=== PATIENT | female | born 1945 | race Caucasian/White ===

== ENCOUNTER 2016-11-26 16:38 | Observation (INO) | payer MEDICARE ==
[2016-11-26] MEDS ORDERED: TYLENOL 325 MG PO PRN (17:42)
[2016-11-26] MEDS ORDERED: PROVENTIL 2.5 MG/3 ML NEB IH PRN (18:00)
[2016-11-26] MEDS: Sodium Chloride 0.9% 1000 ML 1,000 ML IV SCH (18:12)
[2016-11-26 18:23] LABS: BASOPHIL % 0.3 % (0.0-0.4); Eosinophil % 2.2 % (0.00-5.0); Granulocytes % 70.1 % (36.0-66.0); Lymphocytes % 14.7 % (24.0-44.0); Mean Cell Volume 75.3 fl (78-100); Mean Platelet Volume 10.1 fl (6-9.5); Monocytes % 12.7 % (0.0-12.0); Platelet Count 304 K/mm3 (150-450); Red Blood Count 4.33 M/mm3 (4.1-5.4); Red Cell Distribution Width 16.7 % (11.5-14.0); White Blood Count 9.2 K/mm3 (4.0-10.5)
[2016-11-26 18:30] LABS: Mean Corpuscular Hemoglobin 22.8 pg (26-32)
[2016-11-26 18:56] LABS: ALBUMIN 3.3 g/dL (3.4-5.0); ALKALINE PHOSPHATASE 102 U/L (46-116); ANION GAP 13.8 MEQ/L (5-15); BLOOD UREA NITROGEN 12 mg/dL (9-20); CHLORIDE 104 mEq/L (98-107); Carbon Dioxide 25.2 mEq/L (21-32); Glucose 93 MG/DL (70-110); Potassium 3.8 mEq/L (3.5-5.1); SGOT/AST 42 U/L (15-37); SGPT/ALT 31 U/L (12-78); SODIUM 139 mEq/L (136-145); Total Protein 7.4 gm/dL (6.4-8.2)
[2016-11-26] MEDS ORDERED: BUSPAR 5 MG PO PRN (20:00)
[2016-11-26 20:47] LABS: Collection Type CLEAN CATCH
[2016-11-26 20:48] LABS: Bacteria MODERATE /HPF (NEGATIVE); Bilirubin NEGATIVE (NEGATIVE); Blood NEGATIVE Ery/ul (0-5); COMPLETE URINE MICROSCOPIC? YES; Epithelial Cells FEW /HPF (FEW); Glucose NEGATIVE (NEGATIVE); Leukocyte Esterase 1+ (NEGATIVE); Mucus MODERATE /HPF (NEGATIVE)
[2016-11-26] MEDS ORDERED: Singulair 10 MG PO SCH (21:00)
[2016-11-26] MEDS ORDERED: Coumadin 3 MG PO SCH (21:00)
[2016-11-26] MEDS: Cozaar 50 MG PO SCH (21:47)
[2016-11-26] MEDS: Coreg 3.125 MG PO SCH (21:48)
[2016-11-26] MEDS: SYNTHROID 100 MCG PO SCH (21:48)
[2016-11-26] MEDS: BUMEX 1 MG PO SCH (21:48)
[2016-11-26] MEDS: Klor Con 10 MEQ PO SCH ×2 (21:49→21:56)
[2016-11-27] MEDS: Sodium Chloride 0.9% 1000 ML 1,000 ML IV SCH (04:42)
[2016-11-27] MEDS ORDERED: PROVENTIL COMMON CANISTER IH SCH (07:00)
--- NOTE | 2016-11-27 07:43 | XRAY ---
Indication: Fever. Comparison: July 15, 2014. AP/lateral chest again demonstrates previous cardiothoracic surgery with left-sided dual-lead pacemaker and interval worsening cardiomegaly. No focal infiltrate, consolidation, or large effusion. Stable hilar calcified nodes. Bony thorax intact again with mild osteopenia and degenerative changes. Impression: Again COPD and evidence for old granulomatous disease. Interval worsening cardiomegaly. Negative for acute pneumonic process or CHF.
[2016-11-27 08:27] VITALS: O2SAT 96
[2016-11-27] MEDS ORDERED: BUDESONIDE IH SCH (10:00)
[2016-11-27] MEDS ORDERED: ENOXAPARIN SODIUM SQ SCH (10:00)
[2016-11-27] MEDS ORDERED: THERAGRAN MULTIVITAMIN PO SCH (10:00)
[2016-11-27] MEDS ORDERED: FORMOTEROL FUMARATE IH SCH (10:00)
[2016-11-27] MEDS ORDERED: [UNRECOGNIZED DRUG - OTHER] IH SCH (10:00)
[2016-11-27] MEDS ORDERED: Ventolin Hfa MDI IH SCH (10:00)
[2016-11-27] MEDS ORDERED: MULTIVITAMIN WITH MINERALS PO SCH (10:00)
[2016-11-27] MEDS ORDERED: Spiriva 18 Mcg/Cap Inhaler IH SCH (10:00)
[2016-11-27] MEDS ORDERED: Protonix 40MG Tablet PO SCH (10:00)
[2016-11-27] MEDS: SYNTHROID 100 MCG PO SCH (10:24)
[2016-11-27] MEDS: Klor Con 10 MEQ PO SCH (10:24)
[2016-11-27] MEDS: Cozaar 50 MG PO SCH (10:25)
[2016-11-27] MEDS: Coreg 3.125 MG PO SCH (10:25)
[2016-11-27] MEDS: BUMEX 1 MG PO SCH (10:25)
[2016-11-27] MEDS ORDERED: Macrobid 100MG Capsule PO SCH (12:00)
[2016-11-27 12:23] LABS: INR 2.36 (0.8-3.0); PROTIME 26.9 SECONDS (9.95-12.35)
[2016-11-27 12:34] VITALS: BP 131/59; PULSE 69
[2016-11-27] MEDS ORDERED: BUMEX 1 MG IV SCH (13:00)
--- NOTE | 2016-12-01 08:34 | DS ---
DISCHARGE DIAGNOSES: 1) GENERALIZED WEAKNESS, CLINICALLY IMPROVED. 2) HEADACHE, RESOLVED. 3) GENERALIZED PAIN, RESOLVED. 4) HISTORY OF FEVER, RESOLVED. 5) HISTORY OF HYPERTENSION/CORONARY ARTERY DISEASE. 6) HYPOTHYROIDISM. 7) HYPERLIPIDEMIA. 8) ASTHMA. 9) SLEEP APNEA. HOSPITAL COURSE: Jojo Gomez is a 71 year-old woman with past medical history of multiple medical problems. She was seen by Dr. Hicks in the office yesterday with symptoms of generalized pain, fatigue and fever. She was admitted for further work up and management. Please refer to his history and physical for details. Reportedly she had also complained of some lower abdominal pain. Since admission she was continued on her home medications. Lab work up on admission had revealed unremarkable CBC with hemoglobin of 9.9, hematocrit 32.6. CMP was unremarkable except AST 42. NT-BNP was 838. UA showed moderate bacteria, 1+ leukocyte esterase, 5 to 10 red blood cells, no nitrite. EKG showed paced rhythm. During her further course she improved clinically. Earlier today she reported some diarrhea. At the time of this evaluation she was alert, awake and comfortable. She states that pain has improved. Overall she feels better and is wishing to go home. She appears comfortable. She has been tolerating diet. PHYSICAL EXAMINATION: VITAL SIGNS: Blood pressure 122/77, heart rate 71, respiratory rate 18, temperature 98.1F. Oxygen saturation 96% on room air. HEENT: Pallor is present. No icterus is noted. NECK: No JVD is present. CVS: S1, S2 present. RESPIRATORY: Breath sounds are bilaterally diminished and clear to auscultation. ABDOMEN: Obese, soft, nontender. NEURO: She is alert, answers simple questions appropriately. Evaluation of motor strength in bilateral upper and lower extremities reveals grossly intact motor strength. EXTREMITIES: No edema on bilateral lower extremities. LABORATORY DATA AND TESTS: There were no new labs today. ASSESSMENT: As outlined in discharge diagnosis. PLAN: The patient was admitted with generalized pain, fever with fatigue. She has improved symptomatically, remains hemodynamically stable. She remains afebrile with normal white blood cell count. In view of her symptoms, will obtain flu A/B, also will obtain work up for diarrhea. Will obtain TSH. She otherwise feels well, will ambulate her and likely discharge her later today. Will treat with additional dose of Bumex prior to discharge. I have advised the patient to follow up with Dr. Hicks early next week. Compliance with diet and medications were stressed. I have advised her to return to the Emergency Room [facility] if any new signs and symptoms or reappearance of previous signs and symptoms are noted. I have advised her to obtain CMP and CBC during her office visit next week. Please refer to discharge medication list from 11/27/2016 for details of medications on discharge. Please refer to patient's chart, labs, diagnostic work up result notes for details. The patient's clinical condition, work-up results and plan of management including discharge plan as outlined were discussed with her. She seems to be in understanding and agreement.
== END 2016-11-27 14:50 | disposition home or self-care (01) ==
LOC: MED SURG 16:38
PROVIDERS: ADMIT General Practice; ATTEND General Practice
DX: R53.1 Weakness (principal); R51 Headache; I10 Essential (primary) hypertension; I25.810 Atherosclerosis of coronary artery bypass graft(s) without angina pectoris; E03.9 Hypothyroidism, unspecified; E78.5 Hyperlipidemia, unspecified; J45.909 Unspecified asthma, uncomplicated; G47.33 Obstructive sleep apnea (adult) (pediatric); F41.8 Other specified anxiety disorders; R10.30 Lower abdominal pain, unspecified; M81.0 Age-related osteoporosis without current pathological fracture; K21.9 Gastro-esophageal reflux disease without esophagitis; I48.2 Chronic atrial fibrillation; H26.9 Unspecified cataract; Z79.899 Other long term (current) drug therapy
CPT/HCPCS: 36415; 71020; 80053; 81000; 82962; 83036; 83880; 84443; 85025; 85610; 87631; 93005; 93268; 94660; 94760; G0378; A9270-GY

== ENCOUNTER 2016-12-16 12:31 | Emergency (ER) | payer MEDICARE ==
[2016-12-16] MEDS ORDERED: Sodium Chloride 0.9% 1000 ML 1,000 ML ONE (13:23)
--- NOTE | 2016-12-16 13:23 | ERPHSYRPT ---
- History of Present Illness Time Seen by Provider: 12/16/16 12:56 Historian: patient Exam Limitations: no limitations Patient Subjective Stated Complaint: pt here for increase loose stools for a couple days, had 3 today, some nausea, no vomiting. has been under a lot of stress recently Triage Nursing Assessment: pt alert,resp easy,chest clear,abd soft with bsx4 Physician History: 71-year-old white female with multiple medical complaints, Arrives with complaints of diarrhea for a month she states she was seen last month for the same condition. She states that she was told by her sequins slinger to come here to make sure there was no problem with her lap band. Patient states she is having diarrhea she states she only vomits is she eats too much she has no melena no hematochezia. Past medical history includes sleep apnea, pneumonia, asthma with restrictive lung disease, high blood pressure, hypercholesterolemia, hypothyroidism, obesity , coronary artery disease, CABG, CHF, anxiety, depression, rheumatic fever, osteoporosis, diverticulosis, arthritis, chronic back pain, allergic rhinitis, pulmonary hypertension, GERD, psoriasis, cardiomyopathy, chronic atrial fibrillation, cataracts Past surgical history includes appendectomy, hysterectomy with bilateral salpingo-oophorectomy, CABG, cardiac pacer, heart catheter, cholecystectomy, LAP -BAND and gastric bypass, cataract surgery Timing/Duration: other (symptoms for a month) Activities at Onset: none Quality: other (no pain) Abdominal Pain Onset Location: other (no pain) Pain Radiation: other (no pain) Severity of Pain-Max: none Severity of Pain-Current: none Associated Symptoms: diarrhea, vomiting (vomiting if she eats too much) Previous symptoms: same symptoms as today Allergies/Adverse Reactions: Penicillins Allergy (Verified 12/16/16 12:56) ciprofloxacin Adverse Reaction (Verified 12/16/16 12:56) Home Medications: Albuterol Sulfate [Proair Hfa] 2 puff IH QID 09/12/13 [History] Budesonide/Formoterol Fumarate [Symbicort 80-4.5 Mcg Inhaler] 2 puff IH BID [History] Omeprazole [Prilosec] 40 mg PO DAILY 09/12/13 [History] Potassium Chloride 20 Meq [Klor-Con 20 MEQ] 20 meq PO BID 09/12/13 [History] Tiotropium [place] [Spiriva] 1 puff IH DAILY 09/12/13 [History] Warfarin Sodium 3 mg [Coumadin 3 MG] 3 mg DAILY 09/19/15 [History] Bumetanide 1 mg [Bumex 1 mg] 1 mg PO DAILY 11/26/16 [History] Buspirone HCl 5 mg [Buspar 5 mg] 5 mg PO BIDPRN PRN 11/26/16 [History] Carvedilol 3.125 mg [Coreg 3.125 MG] 3.125 mg PO QAM 11/26/16 [History] Levothyroxine Sodium 100 Mcg [Synthroid 100 Mcg] 100 mcg PO DAILY 11/26/16 [History] Losartan Potassium 50 mg [Cozaar 50 MG] 50 mg PO DAILY 11/26/16 [History] Montelukast Sodium [Singulair] 10 mg PO EVENING MEAL 11/26/16 [History] Multivitamin with Minerals [Daily Vitamin Formula-Minerals] 1 tab PO DAILY 11/26 [History] Hx Tetanus, Diphtheria Vaccination/Date Given: Yes Hx Influenza Vaccination/Date Given: Yes Hx Pneumococcal Vaccination/Date Given: Yes - Review of Systems Constitutional: No Fever, No Chills Eyes: No Symptoms Ears, Nose, & Throat: No Symptoms Respiratory: No Cough, No Dyspnea Cardiac: No Chest Pain, No Edema, No Syncope Abdominal/Gastrointestinal: Nausea, Vomiting (vomits if eats too much), Diarrhea , No Constipation, No Hematemesis, No Hematochezia, No Melena, No Dysphagia, No Appetite Changes Genitourinary Symptoms: No Dysuria Musculoskeletal: No Back Pain, No Neck Pain Skin: No Rash Neurological: No Dizziness, No Focal Weakness, No Sensory Changes Psychological: No Symptoms Endocrine: No Symptoms All Other Systems: Reviewed and Negative - Past Medical History Pertinent Past Medical History: Yes Neurological History: No Pertinent History ENT History: Cataracts Cardiac History: Arrhythmia, Congestive Heart Failure, Hypertension, Other Respiratory History: COPD, Pneumonia Endocrine Medical History: Hypothyroidism Musculoskeletal History: Arthritis GI Medical History: Diverticulitis, Diverticulosis, Gallbladder Disease History: No Pertinent History Psycho-Social History: Anxiety, Depression Female Reproductive Disorders: No Pertinent History Other Medical History: A-fib - Past Surgical History Past Surgical History: Yes Cardiac: Cardiac Catheterization, Pacemaker, Valve Replacement Gastrointestinal: Appendectomy, Cholecystectomy, Other Female Surgical History: Hysterectomy Other Surgical History: gastric bypass - Social History Smoking Status: Former smoker Exposure to second hand smoke: No Drug Use: none Patient Lives Alone: Yes - Female History Hx Last Menstrual Period: post - Nursing Vital Signs Nursing Vital Signs: Initial Vital Signs Temperature 97.2 F 12/16/16 12:46 Pulse Rate 84 12/16/16 12:46 Respiratory Rate 16 12/16/16 12:46 Blood Pressure 106/55 12/16/16 12:46 O2 Sat by Pulse Oximetry 93 L 12/16/16 12:46 Pain Scale Pain Intensity 0 - Physical Exam General Appearance: no apparent distress, alert Eye Exam: PERRL/EOMI, eyes nml inspection Ears, Nose, Throat Exam: normal ENT inspection, pharynx normal, moist mucous membranes Neck Exam: normal inspection, non-tender, supple, full range of motion Respiratory Exam: normal breath sounds, lungs clear, No respiratory distress Cardiovascular Exam: regular rate/rhythm, normal heart sounds Gastrointestinal/Abdomen Exam: soft, No tenderness, No mass Rectal Exam: normal exam, black stool (stool is black, no blood, patient is taking Pepto-Bismol no palpable stool or masses) Back Exam: normal inspection, normal range of motion, No CVA tenderness, No vertebral tenderness Extremity Exam: normal inspection, normal range of motion, pelvis stable Neurologic Exam: alert, oriented x 3, cooperative, normal mood/affect, nml cerebellar function, sensation nml, No motor deficits Skin Exam: normal color, warm, dry SpO2 Interpretation: normal (93%) SpO2: 93 Oxygen Delivery: Room Air - CT Exams Abdomen/Pelvis CT Interpretation: Discussed w/radiologist (CT abdomen and pelvis: Impression 1. No new/acute intra-abdominal/pelvic abnormalities on this noncontrast exam 2. Stable cardiomegaly, bariatric surgery, colonic diverticosis, cirrhotic liver, bilateral renal cysts, and punctate right renal calcificication.) Ordered Tests: Active Orders 24 hr Category Date Time Status IV Insertion STAT Care 12/16/16 13:17 Active ABDOMEN AND PELVIS W/0 CONTRAS [CT] Stat Exams 12/16/16 13:54 Completed AMYLASE Stat Lab 12/16/16 12:55 Completed CBC W DIFF Stat Lab 12/16/16 12:55 Completed CMP Stat Lab 12/16/16 12:55 Completed LIPASE Stat Lab 12/16/16 12:55 Completed Occult Blood,Stool Other Stat Lab 12/16/16 15:20 Completed PROTIME WITH INR Stat Lab 12/16/16 13:00 Completed PTT Stat Lab 12/16/16 13:00 Completed Medication Summary Generic Name Dose Route Start Last Admin Trade Name Tess PRN Reason Stop Dose Admin Sodium Chloride 1,000 mls @ 100 mls/hr 12/16/16 13:30 12/16/16 13:24 Sodium Chloride 0.9% 1000 Ml IV 01/15/17 13:29 100 mls/hr .Q10H RICH Administration Lab/Rad Data: Laboratory Result Diagrams 12/16/16 12:55 12/16/16 12:55 Laboratory Results 12/16/16 12/16/16 12/16/16 Range/Units 15:20 13:00 12:55 WBC (4.0-10.5) K/mm3 RBC (4.1-5.4) M/mm3 Hgb (12.0-16.0) gm/dl Hct (35-47) % MCV (78-100) fl MCH (26-32) pg MCHC (32-36) g/dl RDW (11.5-14.0) % Plt Count (150-450) K/mm3 MPV (6-9.5) fl Gran % (36.0-66.0) % Lymphocytes % (24.0-44.0) % Monocytes % (0.0-12.0) % Eosinophils % (0.00-5.0) % Basophils % (0.0-0.4) % Basophils # (0-0.4) INR 2.36 (0.8-3.0) APTT 36.9 (25.3-37.0) SECONDS Sodium 142 (136-145) mEq/L Potassium 4.2 (3.5-5.1) mEq/L Chloride 107 (98-107) mEq/L Carbon Dioxide 24.5 (21-32) mEq/L Anion Gap 14.3 (5-15) MEQ/L BUN 9 (9-20) mg/dL Creatinine 0.79 (0.55-1.30) mg/dl Estimated GFR > 60 ML/MIN Glucose 99 (70-110) MG/DL Calcium 9.3 (8.5-10.1) mg/dL Total Bilirubin 0.70 (0.2-1.0) mg/dL AST 27 (15-37) U/L ALT 28 (12-78) U/L Alkaline Phosphatase 101 (46-116) U/L Serum Total Protein 8.1 (6.4-8.2) gm/dL Albumin 3.6 (3.4-5.0) g/dL Amylase 48 (25-115) U/L Lipase 166 (73-393) U/L Stool Occult Blood NEGATIVE (Negative) 12/16/16 Range/Units 12:55 WBC 8.5 (4.0-10.5) K/mm3 RBC 4.42 (4.1-5.4) M/mm3 Hgb 10.0 L (12.0-16.0) gm/dl Hct 32.9 L (35-47) % MCV 74.4 L (78-100) fl MCH 22.6 L (26-32) pg MCHC 30.4 L (32-36) g/dl RDW 16.6 H (11.5-14.0) % Plt Count 327 (150-450) K/mm3 MPV 10.5 H (6-9.5) fl Gran % 69.1 H (36.0-66.0) % Lymphocytes % 14.3 L (24.0-44.0) % Monocytes % 12.6 H (0.0-12.0) % Eosinophils % 3.3 (0.00-5.0) % Basophils % 0.7 (0.0-0.4) % Basophils # 0.06 (0-0.4) INR (0.8-3.0) APTT (25.3-37.0) SECONDS Sodium (136-145) mEq/L Potassium (3.5-5.1) mEq/L Chloride (98-107) mEq/L Carbon Dioxide (21-32) mEq/L Anion Gap (5-15) MEQ/L BUN (9-20) mg/dL Creatinine (0.55-1.30) mg/dl Estimated GFR ML/MIN Glucose (70-110) MG/DL Calcium (8.5-10.1) mg/dL Total Bilirubin (0.2-1.0) mg/dL AST (15-37) U/L ALT (12-78) U/L Alkaline Phosphatase (46-116) U/L Serum Total Protein (6.4-8.2) gm/dL Albumin (3.4-5.0) g/dL Amylase (25-115) U/L Lipase (73-393) U/L Stool Occult Blood (Negative) - Progress Progress: improved Progress Note: 12/16/16 13:53 Patient states that she has pain whenever she eats. Is not in acute pain at this time but she states she's been having pain after eating for quite some time and she's been having diarrhea. Patient does have a history of gastric bypass and LAP-BAND. Will go ahead and obtain CT of the abdomen and pelvis. Patient states she cannot take contrast that she has a reaction to it whenever she takes it. 12/16/16 16:11 Patient better after IV fluids Patient's stool is black but heme negative CT abdomen no acute findings. Hemoglobin is 10 which is stable from last exam hematocrit 32.9. Will discharge patient home. Patient to follow-up with her family doctor or sequins slinger. - Departure Time of Disposition: 16:13 Departure Disposition: Home Clinical Impression: History of gastric bypass, history of gastric banding Abdominal pain Qualifiers: Abdominal location: epigastric Qualified Code(s): R10.13 - Epigastric pain Diarrhea Qualifiers: Diarrhea type: unspecified type Qualified Code(s): R19.7 - Diarrhea, unspecified Condition: Fair Critical Care Time: No Referrals: TRENT NARAYAN MD [Primary Care Provider] - Additional Instructions: Return home. Plenty of fluids clear fluids only 24-48 hours if abdominal pain or diarrhea. Follow-up with your family doctor or your sequins slinger. Return for acute distress or for severe symptoms.
[2016-12-16] MEDS ORDERED: Sodium Chloride 0.9% 1000 ML 1,000 ML IV SCH (13:30)
[2016-12-16 13:33] LABS: BASOPHIL % 0.7 % (0.0-0.4); Eosinophil % 3.3 % (0.00-5.0); Granulocytes % 69.1 % (36.0-66.0); Lymphocytes % 14.3 % (24.0-44.0); Mean Cell Volume 74.4 fl (78-100); Mean Corpuscular Hemoglobin 22.6 pg (26-32); Mean Platelet Volume 10.5 fl (6-9.5); Monocytes % 12.6 % (0.0-12.0); Platelet Count 327 K/mm3 (150-450); Red Blood Count 4.42 M/mm3 (4.1-5.4); Red Cell Distribution Width 16.6 % (11.5-14.0); White Blood Count 8.5 K/mm3 (4.0-10.5)
[2016-12-16 13:38] LABS: ALBUMIN 3.6 g/dL (3.4-5.0); ALKALINE PHOSPHATASE 101 U/L (46-116); ANION GAP 14.3 MEQ/L (5-15); BLOOD UREA NITROGEN 9 mg/dL (9-20); CHLORIDE 107 mEq/L (98-107); Carbon Dioxide 24.5 mEq/L (21-32); Glucose 99 MG/DL (70-110); LIPASE 166 U/L (73-393); Potassium 4.2 mEq/L (3.5-5.1); SGOT/AST 27 U/L (15-37); SGPT/ALT 28 U/L (12-78); SODIUM 142 mEq/L (136-145); Total Protein 8.1 gm/dL (6.4-8.2)
[2016-12-16 13:49] LABS: INR 2.36 (0.8-3.0); PROTIME 26.9 SECONDS (9.95-12.35)
[2016-12-16 13:52] LABS: PTT 36.9 SECONDS (25.3-37.0)
--- NOTE | 2016-12-16 14:48 | XRAY ---
Indication: Diarrhea. Early satiety. Multiple contiguous axial images obtained through the abdomen and pelvis without contrast as ordered. Comparison: February 20, 2016. Lung bases are clear with again incidental lingular calcified granuloma. Stable cardiomegaly. Again there has been previous bariatric surgery as evidenced by gastric band, catheter, and reservoir. Noncontrasted stomach and bowel loops remain nonobstructed. Stable scattered descending and sigmoid diverticulosis without diverticulitis. Appendix not seen. No free fluid/air. Stable cirrhotic liver, cholecystectomy, hysterectomy, scattered calcified splenic granulomas, and bilateral renal cysts, and punctate right renal cortical calcification. Remaining pancreas, adrenal glands, ureters, and bladder appear unremarkable for noncontrast exam. Again mild calcifications of the aortoiliac vessels without AAA. Osseous structures intact with mild spinal degenerative changes. Impression: 1. Again no new/acute intra-abdominal/pelvic abnormalities on this noncontrast exam. 2. Stable cardiomegaly, bariatric surgery, colonic diverticulosis, cirrhotic liver, bilateral renal cysts, and punctate right renal calcification. CTDI 33.04
[2016-12-16 16:35] VITALS: BP 117/78; PULSE 78; O2SAT 97
== END 2016-12-16 16:35 | disposition home or self-care (01) ==
LOC: ED 12:31
DX: R10.13 Epigastric pain (principal); R19.7 Diarrhea, unspecified; Z98.84 Bariatric surgery status
CPT/HCPCS: 36000; 36415; 74176; 80053; 82150; 82272; 83690; 85025; 85610; 85730; 96360; 96361; 99284

== ENCOUNTER 2017-11-01 11:43 | Emergency (ER) | payer MEDICARE ==
--- NOTE | 2017-11-01 12:17 | ERPHSYRPT ---
- History of Present Illness Time Seen by Provider: 11/01/17 12:08 Historian: patient Exam Limitations: no limitations Patient Subjective Stated Complaint: having lower back pain, abdominal pain and not been able to eat Triage Nursing Assessment: pt is alert and oriented x3, able to ambulate by self , short of breath on exertion, gait unsteady. patient lung sounds anterior bilateral clear diminished, bowel sounds present x 4, skin warm dry and intact. tenderness noted around port site for lapband. Physician History: The patient is a 72-year-old female complaining of abdominal pain and back pain for more than a week. She denies nausea, vomiting, or diarrhea. She denies fever or chills. She denies shortness of breath. She saw one week ago and was given Brillion for a hernia. Her pain has not been gotten worse or better. She is tired of hurting. Her past medical history is significant for open heart surgery 2, cardiac pacemaker, hypertension, CHF, asthma, depression , and GERD. Her past surgical history is significant for a lap band, cholecystectomy, appendectomy, and hysterectomy. Timing/Duration: week(s) (05/17), gradual onset Activities at Onset: none Quality: sharpness Abdominal Pain Onset Location: LUQ, LLQ Pain Radiation: back Severity of Pain-Max: moderate Severity of Pain-Current: moderate Modifying Factors: Improves With: analgesics Associated Symptoms: denies symptoms Previous symptoms: same symptoms as today, recently seen Allergies/Adverse Reactions: Penicillins Allergy (Verified 12/16/16 12:56) ciprofloxacin Adverse Reaction (Verified 12/16/16 12:56) Home Medications: Albuterol Sulfate [Proair Hfa] 2 puff IH QID 09/12/13 [History] Budesonide/Formoterol Fumarate [Symbicort 80-4.5 Mcg Inhaler] 2 puff IH BID [History] Omeprazole [Prilosec] 40 mg PO DAILY 09/12/13 [History] Potassium Chloride 20 Meq [Klor-Con 20 MEQ] 20 meq PO BID 09/12/13 [History] Tiotropium [place] [Spiriva] 1 puff IH DAILY 09/12/13 [History] Warfarin Sodium 3 mg [Coumadin 3 MG] 3 mg DAILY 05/06/16 [History] Bumetanide 1 mg [Bumex 1 mg] 1 mg PO DAILY 11/26/16 [History] Buspirone HCl 5 mg [Buspar 5 mg] 5 mg PO BIDPRN PRN 11/26/16 [History] Carvedilol 3.125 mg [Coreg 3.125 MG] 3.125 mg PO QAM 11/26/16 [History] Levothyroxine Sodium 100 Mcg [Synthroid 100 Mcg] 100 mcg PO DAILY 11/26/16 [History] Losartan Potassium 50 mg [Cozaar 50 MG] 50 mg PO DAILY 11/26/16 [History] Montelukast Sodium [Singulair] 10 mg PO EVENING MEAL 11/26/16 [History] Multivitamin with Minerals [Daily Vitamin Formula-Minerals] 1 tab PO DAILY 11/26 [History] Hx Tetanus, Diphtheria Vaccination/Date Given: Yes Hx Influenza Vaccination/Date Given: Yes Hx Pneumococcal Vaccination/Date Given: Yes Immunizations Up to Date: Yes - Review of Systems Constitutional: No Fever, No Chills Eyes: No Symptoms Ears, Nose, & Throat: No Symptoms Respiratory: No Cough, No Dyspnea Cardiac: No Chest Pain, No Edema, No Syncope Abdominal/Gastrointestinal: Abdominal Pain, No Nausea, No Vomiting, No Diarrhea Genitourinary Symptoms: No Dysuria Musculoskeletal: Back Pain Skin: No Rash Neurological: No Dizziness, No Focal Weakness, No Sensory Changes Psychological: No Symptoms Endocrine: No Symptoms Hematologic/Lymphatic: No Symptoms Immunological/Allergic: No Symptoms All Other Systems: Reviewed and Negative - Past Medical History Pertinent Past Medical History: Yes Neurological History: No Pertinent History ENT History: Cataracts Cardiac History: Arrhythmia, Congestive Heart Failure, Hypertension, Other Respiratory History: COPD, Pneumonia Endocrine Medical History: Hypothyroidism Musculoskeletal History: Arthritis GI Medical History: Diverticulitis, Diverticulosis, Gallbladder Disease History: No Pertinent History Psycho-Social History: Anxiety, Depression Female Reproductive Disorders: No Pertinent History Other Medical History: A-fib - Past Surgical History Past Surgical History: Yes Cardiac: Cardiac Catheterization, Pacemaker, Valve Replacement Gastrointestinal: Appendectomy, Cholecystectomy, Other Female Surgical History: Hysterectomy Other Surgical History: gastric bypass - Social History Smoking Status: Never smoker Exposure to second hand smoke: No Drug Use: none Patient Lives Alone: Yes - Female History Hx Now: No - Nursing Vital Signs Nursing Vital Signs: Initial Vital Signs Temperature 98.8 F 11/01/17 11:43 Pulse Rate 60 11/01/17 11:43 Respiratory Rate 20 11/01/17 11:43 Blood Pressure 125/63 11/01/17 11:43 O2 Sat by Pulse Oximetry 96 11/01/17 11:43 Pain Scale Pain Intensity [] 8 Pain Intensity 5 - Physical Exam General Appearance: mild distress Eye Exam: PERRL/EOMI Ears, Nose, Throat Exam: normal ENT inspection, pharynx normal, moist mucous membranes Neck Exam: normal inspection, non-tender, supple, full range of motion Respiratory Exam: normal breath sounds, lungs clear, No respiratory distress Cardiovascular Exam: regular rate/rhythm, murmur Gastrointestinal/Abdomen Exam: tenderness (left side) Pelvic Exam: not done Rectal Exam: not done Back Exam: normal inspection, normal range of motion, No CVA tenderness, No vertebral tenderness Extremity Exam: normal inspection, normal range of motion, pelvis stable Neurologic Exam: alert, oriented x 3, cooperative, normal mood/affect, nml cerebellar function, sensation nml, No motor deficits Skin Exam: normal color, warm, dry SpO2 Interpretation: normal SpO2: 96 Oxygen Delivery: Room Air - CT Exams Abdomen/Pelvis CT Interpretation: Discussed w/radiologist, diverticulitis (new focus of diverticulitis at junction of descending and sigmoid colon per Dr Bagley.) Ordered Tests: Active Orders 24 hr Category Date Time Status Clean Catch Urine Specimen STAT Care 11/01/17 12:22 Active IV Insertion STAT Care 11/01/17 12:22 Active ABDOMEN AND PELVIS W/0 CONTRAS [CT] Stat Exams 11/01/17 12:23 Completed AMYLASE Stat Lab 11/01/17 12:58 Completed CBC W DIFF Stat Lab 11/01/17 12:58 Completed CMP Stat Lab 11/01/17 12:58 Completed CULTURE,URINE Stat Lab 11/01/17 14:30 Received LIPASE Stat Lab 11/01/17 12:58 Completed Lactic Acid Stat Lab 11/01/17 12:30 Completed PROTIME WITH INR Stat Lab 11/01/17 12:58 Completed TROPONIN Q3H Lab 11/01/17 12:58 Completed TROPONIN Q3H Lab 11/01/17 15:30 Ordered TROPONIN Q3H Lab 11/01/17 18:30 Ordered TROPONIN Q3H Lab 11/01/17 21:30 Ordered TROPONIN Q3H Lab 11/02/17 00:30 Ordered UA W/ MICROSCOPIC Stat Lab 11/01/17 14:30 Completed Medication Summary Discontinued Medications Generic Name Dose Route Start Last Admin Trade Name Freq PRN Reason Stop Dose Admin Acetaminophen 1,000 mg 11/01/17 14:13 11/01/17 14:16 Tylenol Extra Strength 500 Mg PO 11/01/17 14:14 1,000 mg STAT ONE Administration Acetaminophen Confirm 11/01/17 14:14 Tylenol Extra Strength 500 Mg Administered 11/01/17 14:15 Dose 1,000 mg .ROUTE .STK-MED ONE Sodium Chloride 500 mls @ 999 mls/hr 11/01/17 12:22 11/01/17 12:40 Sodium Chloride 0.9% 1000 Ml IV 11/01/17 12:52 999 mls/hr .Q31M STA Administration Sodium Chloride Confirm 11/01/17 12:35 Sodium Chloride 0.9% 1000 Ml Administered 11/01/17 12:36 Dose 1,000 mls @ ud .ROUTE .STK-MED ONE Ceftriaxone Sodium/Dextrose 1 g in 50 mls @ 100 mls/hr 11/01/17 13:25 13:34 Rocephin 1 Gm-D5w 50 Ml Bag IV 11/01/17 13:54 100 mls/hr STAT STA 100 mls/hr Administration Ceftriaxone Sodium/Dextrose Confirm 11/01/17 13:30 Rocephin 1 Gm-D5w 50 Ml Bag Administered 11/01/17 13:31 Dose 1 g in 50 mls @ ud IV .STK-MED ONE Lab/Rad Data: Laboratory Result Diagrams 11/01/17 12:58 11/01/17 12:58 Laboratory Results 11/01/17 11/01/17 11/01/17 Range/Units 14:30 12:58 12:58 WBC (4.0-10.5) K/mm3 RBC (4.1-5.4) M/mm3 Hgb (12.0-16.0) gm/dl Hct (35-47) % MCV (78-100) fl MCH (26-32) pg MCHC (32-36) g/dl RDW (11.5-14.0) % Plt Count (150-450) K/mm3 MPV (6-9.5) fl Gran % (36.0-66.0) % Eos # (Auto) (0-0.5) Absolute Lymphs (auto) (1.0-4.6) Absolute Monos (auto) (0.0-1.3) Lymphocytes % (24.0-44.0) % Monocytes % (0.0-12.0) % Eosinophils % (0.00-5.0) % Basophils % (0.0-0.4) % Absolute Granulocytes (1.4-6.9) Basophils # (0-0.4) PT 25.7 H (9.95-12.35) SECONDS INR 2.19 (0.8-3.0) Sodium (137-145) mmol/L Potassium (3.5-5.1) mmol/L Chloride (98-107) mmol/L Carbon Dioxide (22-30) mmol/L Anion Gap (5-15) MEQ/L BUN (7-17) mg/dL Creatinine (0.52-1.04) mg/dL Estimated GFR ML/MIN Glucose (74-106) mg/dL Lactic Acid (0.4-2.0) Calcium (8.4-10.2) mg/dL Total Bilirubin (0.2-1.3) mg/dL AST (14-36) U/L ALT (0-35) U/L Alkaline Phosphatase (38-126) U/L Troponin I 0.013 (0.000-0.034) ng/mL Serum Total Protein (6.3-8.2) g/dL Albumin (3.5-5.0) g/dL Amylase (30-110) U/L Lipase (23-300) U/L Ur Collection Type VOID Urine Color YELLOW (YELLOW) Urine Appearance CLEAR (CLEAR) Urine pH 6.0 (5-6) Ur Specific Teller 1.010 (1.005-1.025) Urine Protein TRACE (Negative) Urine Ketones NEGATIVE (NEGATIVE) Urine Blood 5-10 (0-5) Rolo/ul Urine Nitrite NEGATIVE (NEGATIVE) Urine Bilirubin NEGATIVE (NEGATIVE) Urine Urobilinogen NORMAL (0-1) mg/dL Ur Leukocyte Esterase TRACE (NEGATIVE) Urine Microscopic RBC 0-2 (0-2) /HPF Urine Microscopic WBC 2-5 (0-5) /HPF Ur Epithelial Cells RARE (FEW) /HPF Urine Bacteria FEW (NEGATIVE) /HPF Urine Culture Reflexed YES (NO) Urine Glucose NEGATIVE (NEGATIVE) mg/dL Specimen Received 11/01/17 1430 11/01/17 11/01/17 11/01/17 Range/Units 12:58 12:58 12:30 WBC 9.4 (4.0-10.5) K/mm3 RBC 4.31 (4.1-5.4) M/mm3 Hgb 10.2 L (12.0-16.0) gm/dl Hct 32.7 L (35-47) % MCV 75.9 L (78-100) fl MCH 23.6 L (26-32) pg MCHC 31.2 L (32-36) g/dl RDW 17.7 H (11.5-14.0) % Plt Count 244 (150-450) K/mm3 MPV 10.7 H (6-9.5) fl Gran % 65.7 (36.0-66.0) % Eos # (Auto) 0.19 (0-0.5) Absolute Lymphs (auto) 1.78 (1.0-4.6) Absolute Monos (auto) 1.23 (0.0-1.3) Lymphocytes % 18.9 L (24.0-44.0) % Monocytes % 13.0 H (0.0-12.0) % Eosinophils % 2.0 (0.00-5.0) % Basophils % 0.4 (0.0-0.4) % Absolute Granulocytes 6.19 (1.4-6.9) Basophils # 0.04 (0-0.4) PT (9.95-12.35) SECONDS INR (0.8-3.0) Sodium 142 (137-145) mmol/L Potassium 4.7 (3.5-5.1) mmol/L Chloride 109 H (98-107) mmol/L Carbon Dioxide 23 (22-30) mmol/L Anion Gap 15.1 H (5-15) MEQ/L BUN 21 H (7-17) mg/dL Creatinine 0.64 (0.52-1.04) mg/dL Estimated GFR > 60.0 ML/MIN Glucose 93 (74-106) mg/dL Lactic Acid 1.0 (0.4-2.0) Calcium 9.7 (8.4-10.2) mg/dL Total Bilirubin 0.80 (0.2-1.3) mg/dL AST 25 (14-36) U/L ALT 23 (0-35) U/L Alkaline Phosphatase 114 (38-126) U/L Troponin I (0.000-0.034) ng/mL Serum Total Protein 7.0 (6.3-8.2) g/dL Albumin 4.0 (3.5-5.0) g/dL Amylase 59 (30-110) U/L Lipase 243 (23-300) U/L Ur Collection Type Urine Color (YELLOW) Urine Appearance (CLEAR) Urine pH (5-6) Ur Specific Teller (1.005-1.025) Urine Protein (Negative) Urine Ketones (NEGATIVE) Urine Blood (0-5) Rolo/ul Urine Nitrite (NEGATIVE) Urine Bilirubin (NEGATIVE) Urine Urobilinogen (0-1) mg/dL Ur Leukocyte Esterase (NEGATIVE) Urine Microscopic RBC (0-2) /HPF Urine Microscopic WBC (0-5) /HPF Ur Epithelial Cells (FEW) /HPF Urine Bacteria (NEGATIVE) /HPF Urine Culture Reflexed (NO) Urine Glucose (NEGATIVE) mg/dL Specimen Received - Progress Progress: improved Counseled pt/family regarding: lab results, diagnosis, need for follow-up, rad results - Departure Time of Disposition: 14:52 Departure Disposition: Home Clinical Impression: Diverticulitis large intestine Condition: Stable Critical Care Time: No Referrals: TRENT NARAYAN MD [Primary Care Provider] - Additional Instructions: Your abdominal pain is being caused by a small area of diverticulitis in her colon. You were given Tylenol and Rocephin 1 g in the ER. Continue antibiotic treatment by taking Bactrim DS 2 times a day and Flagyl 500 mg 3 times a day for 10 days. Follow-up with Dr. Narayan in 2-3 days. Prescriptions: Metronidazole 500 mg PO TID #30 tablet Smz/Tmp Ds Tablet [Bactrim Ds Tablet] 1 udtab PO BID #20 tablet
[2017-11-01] MEDS ORDERED: Sodium Chloride 0.9% 1000 ML 1,000 ML ONE (12:35)
[2017-11-01 13:05] LABS: BASOPHIL % 0.4 % (0.0-0.4); Basophil (Absolute #) 0.04 (0-0.4); Eosinophil (Absolute #) 0.19 (0-0.5); Granulocyte Absolute (ANC) 6.19 (1.4-6.9); Granulocytes % 65.7 % (36.0-66.0); Hematocrit 32.7 % (35-47); Hemoglobin 10.2 gm/dl (12.0-16.0); Lymphocyte (Absolute #) 1.78 (1.0-4.6); Lymphocytes % 18.9 % (24.0-44.0); Mean Cell Volume 75.9 fl (78-100); Mean Corpuscular Hgb Concent. 31.2 g/dl (32-36); Mean Platelet Volume 10.7 fl (6-9.5); Monocyte (Absolute #) 1.23 (0.0-1.3); Platelet Count 244 K/mm3 (150-450); Red Blood Count 4.31 M/mm3 (4.1-5.4); Red Cell Distribution Width 17.7 % (11.5-14.0); White Blood Count 9.4 K/mm3 (4.0-10.5)
--- NOTE | 2017-11-01 13:05 | XRAY ---
Indication: Diffuse abdominal and back pain one week. Multiple contiguous axial images obtained through the abdomen and pelvis without contrast as ordered. Comparison: December 16, 2016. Lung bases remaining clear again with incidental lingular calcified granuloma. Stable cardiomegaly. Again previous bariatric surgery as evidenced by gastric band, catheter, and reservoir. Noncontrasted stomach and bowel loops remain nonobstructed. Stable scattered descending and sigmoid diverticulosis without diverticulitis. There is now a short focus of minimal diverticulosis of the junction of the descending and sigmoid. No free fluid/air. Stable cirrhotic liver, appendectomy, cholecystectomy, hysterectomy, scattered calcified splenic granulomas, bilateral renal cysts, punctate right renal cortical calcification, and small left urinary bladder diverticulum. Remaining liver, pancreas, spleen, adrenal glands, kidneys, ureters, and bladder appear unremarkable for noncontrast exam. Again mild calcifications of the aortoiliac vessels without AAA. Osseous structures intact with mild spinal degenerative changes. Impression: 1. Again descending/sigmoid colonic diverticulosis. New focus of minimal diverticulitis junction of descending and sigmoid colon. No complications. 2. Stable cardiomegaly, bariatric surgery, cirrhotic liver, bilateral renal cysts, punctate right renal calcification, and urinary bladder diverticulum. CTDI 23.49
[2017-11-01 13:07] LABS: Mean Corpuscular Hemoglobin 23.6 pg (26-32)
[2017-11-01 13:15] LABS: INR 2.19 (0.8-3.0)
[2017-11-01 13:17] LABS: ALKALINE PHOSPHATASE 114 U/L (38-126); AMYLASE 59 U/L (30-110); ANION GAP 15.1 MEQ/L (5-15); BLOOD UREA NITROGEN 21 mg/dL (7-17); CHLORIDE 109 mmol/L (98-107); Calcium 9.7 mg/dL (8.4-10.2); Carbon Dioxide 23 mmol/L (22-30); Creatinine 1 0.64 mg/dL (0.52-1.04); Glucose 93 mg/dL (74-106); LIPASE 243 U/L (23-300); Potassium 4.7 mmol/L (3.5-5.1); SGOT/AST 25 U/L (14-36); SGPT/ALT 23 U/L (0-35); SODIUM 142 mmol/L (137-145)
[2017-11-01] MEDS ORDERED: ROCEPHIN 1 Gm-D5w 50 ml Bag** 1 G/50 ML IVPB IV STA (13:25)
[2017-11-01] MEDS ORDERED: ROCEPHIN 1 Gm-D5w 50 ml Bag** 1 G/50 ML IVPB IV ONE (13:30)
[2017-11-01] MEDS ORDERED: TYLENOL EXTRA STRENGTH 500 MG PO ONE (14:13)
[2017-11-01] MEDS ORDERED: TYLENOL EXTRA STRENGTH 500 MG ONE (14:14)
[2017-11-01 14:42] LABS: Appearance CLEAR (CLEAR); Bilirubin NEGATIVE (NEGATIVE); Glucose NEGATIVE (NEGATIVE); Ketones NEGATIVE (NEGATIVE); Leukocyte Esterase TRACE (NEGATIVE); Nitrite NEGATIVE (NEGATIVE); Protein,Urine Dip TRACE (Negative); Urobilinogen NORMAL mg/dL (0-1)
[2017-11-01 14:43] LABS: Bacteria FEW /HPF (NEGATIVE); Epithelial Cells RARE /HPF (FEW); RBC 0-2 /HPF (0-2)
[2017-11-01 15:29] VITALS: BP 125/78; PULSE 63; O2SAT 93
== END 2017-11-01 15:29 | disposition home or self-care (01) ==
LOC: ED 11:43
DX: K57.32 Diverticulitis of large intestine without perforation or abscess without bleeding (principal); M54.9 Dorsalgia, unspecified; Z79.01 Long term (current) use of anticoagulants; Z79.899 Other long term (current) drug therapy
CPT/HCPCS: 36000; 36415; 74176; 80053; 81000; 82150; 83605; 83690; 84484; 85025; 85610; 87086; 96360; 96365; 99284; J0696; A9270-GY

== ENCOUNTER 2017-12-31 20:06 | Observation (INO) | payer MEDICARE ==
--- NOTE | 2017-12-31 20:36 | ERPHSYRPT ---
- History of Present Illness Time Seen by Provider: 12/31/17 20:31 Source: patient, EMS Exam Limitations: no limitations Physician History: The patient is a 72-year-old female brought in by ambulance from home which she had a sudden onset of nearly fainting, mild nausea, mild shortness of breath, mild nausea, and sweating. This lasted for a few minutes. She now feels better. She was in the kitchen cooking hamburger for her two puppies when the event occurred. She denies chest pain. She denies vomiting or diarrhea. She denies abdominal pain. Her past medical history is significant for CABG, CAD, cardiac pacemaker, hypertension, CHF, asthma, GERD, diverticulitis, hypothyroidism, and gastric bypass. Witnessed: unwitnessed Prior Episodes: single episode today, no prior history Timing/Duration: today, hour(s) (1), resolved prior to arrival, sudden Precipitating Factors: none Context: standing Loss of Consciousness: no loss of consciousness Charcter of event(s): felt faint Allergies/Adverse Reactions: Penicillins Allergy (Verified 12/16/16 12:56) ciprofloxacin Adverse Reaction (Verified 12/16/16 12:56) Home Medications: Albuterol Sulfate [Proair Hfa] 2 puff IH QID 09/12/13 [History] Budesonide/Formoterol Fumarate [Symbicort 80-4.5 Mcg Inhaler] 2 puff IH BID [History] Omeprazole [Prilosec] 40 mg PO DAILY 09/12/13 [History] Potassium Chloride 20 Meq [Klor-Con 20 MEQ] 20 meq PO BID 09/12/13 [History] Tiotropium [place] [Spiriva] 1 puff IH DAILY 09/12/13 [History] Warfarin Sodium 3 mg [Coumadin 3 MG] 3 mg DAILY 09/19/15 [History] Bumetanide 1 mg [Bumex 1 mg] 1 mg PO DAILY 11/26/16 [History] Buspirone HCl 5 mg [Buspar 5 mg] 5 mg PO BIDPRN PRN 11/26/16 [History] Carvedilol 3.125 mg [Coreg 3.125 MG] 3.125 mg PO QAM 11/26/16 [History] Levothyroxine Sodium 100 Mcg [Synthroid 100 Mcg] 100 mcg PO DAILY 11/26/16 [History] Losartan Potassium 50 mg [Cozaar 50 MG] 50 mg PO DAILY 11/26/16 [History] Montelukast Sodium [Singulair] 10 mg PO EVENING MEAL 11/26/16 [History] Multivitamin with Minerals [Daily Vitamin Formula-Minerals] 1 tab PO DAILY 11/26 [History] Hx Tetanus, Diphtheria Vaccination/Date Given: Yes Hx Influenza Vaccination/Date Given: Yes Hx Pneumococcal Vaccination/Date Given: Yes - Past Medical History Pertinent Past Medical History: Yes Neurological History: No Pertinent History ENT History: Cataracts Cardiac History: Arrhythmia, Congestive Heart Failure, Hypertension, Other Respiratory History: COPD, Pneumonia Endocrine Medical History: Hypothyroidism Musculoskeletal History: Arthritis GI Medical History: Diverticulitis, Diverticulosis, Gallbladder Disease History: No Pertinent History Psycho-Social History: Anxiety, Depression Female Reproductive Disorders: No Pertinent History Other Medical History: A-fib - Past Surgical History Past Surgical History: Yes Cardiac: Cardiac Catheterization, Pacemaker, Valve Replacement Gastrointestinal: Appendectomy, Cholecystectomy, Other Female Surgical History: Hysterectomy Other Surgical History: gastric bypass - Social History Smoking Status: Never smoker Exposure to second hand smoke: No Drug Use: none Patient Lives Alone: Yes - Review of Systems Constitutional: No Fever, No Chills Eyes: No Symptoms Ears, Nose, & Throat: No Symptoms Respiratory: Dyspnea Cardiac: No Chest Pain, No Edema, No Syncope Abdominal/Gastrointestinal: Nausea, No Abdominal Pain Genitourinary Symptoms: No Dysuria Musculoskeletal: No Back Pain, No Neck Pain Skin: No Rash Neurological: Dizziness, No Headache Psychological: No Symptoms Endocrine: No Symptoms Hematologic/Lymphatic: No Symptoms Immunological/Allergic: No Symptoms All Other Systems: Reviewed and Negative Physical Exam - Nursing Vital Signs Nursing Vital Signs: Initial Vital Signs Temperature 97.4 F 12/31/17 20:37 Pulse Rate 60 12/31/17 20:37 Respiratory Rate 20 12/31/17 20:37 Blood Pressure 130/74 12/31/17 20:37 O2 Sat by Pulse Oximetry 100 12/31/17 20:37 Pain Scale Pain Intensity 0 - Rob Coma Scale Best Eye Response (Rob): (4) open spontaneously Best Verbal Response (Rowan): (5) oriented Best Motor Response (Rob): (6) obeys commands Rowan Total: 15 - Physical Exam General Appearance: no apparent distress, alert Eye Exam: bilateral eye: normal inspection, PERRL Ears, Nose, Throat Exam: normal ENT inspection, pharynx normal, moist mucous membranes Neck Exam: normal inspection, non-tender, supple, full range of motion Respiratory: normal breath sounds, lungs clear, No chest tenderness, No respiratory distress Cardiovascular: regular rate/rhythm, capillary refill <2 sec, No murmur, No pulse deficit Gastrointestinal: soft, No tenderness, No distention, No mass Pelvic Exam: not done Rectal Exam: not done Back Exam: normal inspection, normal range of motion, No CVA tenderness, No vertebral tenderness Extremity Exam: normal inspection, normal range of motion, pelvis stable, No tenderness Mental Status: alert, oriented x 3, 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 Exam: normal speech, PERRL, No facial droop Coordination/Gait: normal finger to nose Motor/Sensory: no motor deficit, no sensory deficit, no pronator drift Skin Exam: normal color, warm, dry, No rash SpO2 Interpretation: normal Oxygen Delivery: Room Air - Course EKG Interpreted by Me: RATE, Other (paced rhythm) - Radiology Exams Chest X-ray Interpretation: Interpreted by me, Negative (stable 2V chest, comp 2 V chest 05/31/17.) Ordered Tests: Active Orders 24 hr Category Date Time Status Customer Care Agent STAT Care 12/31/17 20:39 Active Clean Catch Urine Specimen STAT Care 12/31/17 20:38 Active EKG-ER Only STAT Care 12/31/17 20:38 Active IV Insertion STAT Care 12/31/17 20:38 Active Orthostatic Vital Signs STAT Care 12/31/17 20:38 Active Pulse Oximetry (ED) STAT Care 12/31/17 20:38 Active CHEST 2 VIEWS (PA AND LAT) Stat Exams 12/31/17 20:39 Taken CBC W DIFF Stat Lab 12/31/17 21:15 Completed CMP Stat Lab 12/31/17 21:15 Completed ETHYL ALCOHOL Stat Lab 12/31/17 21:15 Completed NT PRO BNP Stat Lab 12/31/17 21:15 Completed PROTIME WITH INR Stat Lab 12/31/17 21:15 Completed TROPONIN Q3H Lab 12/31/17 23:20 Completed UA W/RFX UR CULTURE Stat Lab 12/31/17 21:35 Completed Medication Summary Discontinued Medications Generic Name Dose Route Start Last Admin Trade Name Tess PRN Reason Stop Dose Admin Sodium Chloride 500 mls @ 999 mls/hr 12/31/17 20:38 12/31/17 21:52 Sodium Chloride 0.9% 1000 Ml IV 12/31/17 21:08 Infused .Q31M STA Infusion Sodium Chloride Confirm 12/31/17 21:04 Sodium Chloride 0.9% 1000 Ml Administered 12/31/17 21:05 Dose 1,000 mls @ ud .ROUTE .STK-MED ONE Lab/Rad Data: Laboratory Result Diagrams 12/31/17 21:15 12/31/17 21:15 Laboratory Results 12/31/17 12/31/17 12/31/17 Range/Units 23:20 21:35 21:15 WBC (4.0-10.5) K/mm3 RBC (4.1-5.4) M/mm3 Hgb (12.0-16.0) gm/dl Hct (35-47) % MCV (78-100) fl MCH (26-32) pg MCHC (32-36) g/dl RDW (11.5-14.0) % Plt Count (150-450) K/mm3 MPV (6-9.5) fl Gran % (36.0-66.0) % Eos # (Auto) (0-0.5) Absolute Lymphs (auto) (1.0-4.6) Absolute Monos (auto) (0.0-1.3) Lymphocytes % (24.0-44.0) % Monocytes % (0.0-12.0) % Eosinophils % (0.00-5.0) % Basophils % (0.0-0.4) % Absolute Granulocytes (1.4-6.9) Basophils # (0-0.4) PT (9.95-12.35) SECONDS INR (0.8-3.0) Sodium (137-145) mmol/L Potassium (3.5-5.1) mmol/L Chloride (98-107) mmol/L Carbon Dioxide (22-30) mmol/L Anion Gap (5-15) MEQ/L BUN (7-17) mg/dL Creatinine (0.52-1.04) mg/dL Estimated GFR ML/MIN Glucose (74-106) mg/dL Calcium (8.4-10.2) mg/dL Total Bilirubin (0.2-1.3) mg/dL AST (14-36) U/L ALT (0-35) U/L Alkaline Phosphatase (38-126) U/L Troponin I 0.037 H* (0.000-0.034) ng/mL NT-Pro-B Natriuret Pep 500 (0-900) pg/mL Serum Total Protein (6.3-8.2) g/dL Albumin (3.5-5.0) g/dL Ur Collection Type VOID Urine Color YELLOW (YELLOW) Urine Appearance CLEAR (CLEAR) Urine pH 5.0 (5-6) Ur Specific Nelson 1,020 (1.005-1.025) Urine Protein NEGATIVE (Negative) Urine Ketones NEGATIVE (NEGATIVE) Urine Blood NEGATIVE (0-5) Rolo/ul Urine Nitrite NEGATIVE (NEGATIVE) Urine Bilirubin NEGATIVE (NEGATIVE) Urine Urobilinogen NORMAL (0-1) mg/dL Ur Leukocyte Esterase NEGATIVE (NEGATIVE) Urine Culture Reflexed NO (NO) Urine Glucose NEGATIVE (NEGATIVE) mg/dL Ethyl Alcohol (0-10) mg/dL Specimen Received 12-3112/31/17 12/31/17 12/31/17 Range/Units 21:15 21:15 21:15 WBC 8.1 (4.0-10.5) K/mm3 RBC 4.41 (4.1-5.4) M/mm3 Hgb 10.5 L (12.0-16.0) gm/dl Hct 33.6 L (35-47) % MCV 76.2 L (78-100) fl MCH 23.8 L (26-32) pg MCHC 31.3 L (32-36) g/dl RDW 17.6 H (11.5-14.0) % Plt Count 253 (150-450) K/mm3 MPV 10.2 H (6-9.5) fl Gran % 67.0 H (36.0-66.0) % Eos # (Auto) 0.19 (0-0.5) Absolute Lymphs (auto) 1.58 (1.0-4.6) Absolute Monos (auto) 0.87 (0.0-1.3) Lymphocytes % 19.4 L (24.0-44.0) % Monocytes % 10.7 (0.0-12.0) % Eosinophils % 2.3 (0.00-5.0) % Basophils % 0.6 (0.0-0.4) % Absolute Granulocytes 5.45 (1.4-6.9) Basophils # 0.05 (0-0.4) PT 28.3 H (9.95-12.35) SECONDS INR 2.41 (0.8-3.0) Sodium 140 (137-145) mmol/L Potassium 4.2 (3.5-5.1) mmol/L Chloride 107 (98-107) mmol/L Carbon Dioxide 23 (22-30) mmol/L Anion Gap 14.0 (5-15) MEQ/L BUN 20 H (7-17) mg/dL Creatinine 0.67 (0.52-1.04) mg/dL Estimated GFR > 60.0 ML/MIN Glucose 107 H (74-106) mg/dL Calcium 9.3 (8.4-10.2) mg/dL Total Bilirubin 0.70 (0.2-1.3) mg/dL AST 27 (14-36) U/L ALT 25 (0-35) U/L Alkaline Phosphatase 135 H (38-126) U/L Troponin I (0.000-0.034) ng/mL NT-Pro-B Natriuret Pep (0-900) pg/mL Serum Total Protein 7.6 (6.3-8.2) g/dL Albumin 4.3 (3.5-5.0) g/dL Ur Collection Type Urine Color (YELLOW) Urine Appearance (CLEAR) Urine pH (5-6) Ur Specific Nelson (1.005-1.025) Urine Protein (Negative) Urine Ketones (NEGATIVE) Urine Blood (0-5) Rolo/ul Urine Nitrite (NEGATIVE) Urine Bilirubin (NEGATIVE) Urine Urobilinogen (0-1) mg/dL Ur Leukocyte Esterase (NEGATIVE) Urine Culture Reflexed (NO) Urine Glucose (NEGATIVE) mg/dL Ethyl Alcohol < 10 (0-10) mg/dL Specimen Received - Progress Progress: unchanged Progress Note: 01/01/18 01:08 I discussed pt with Dr Denton Allen who will accept pt for Dr Narayan if her outpatient psychiatrist, Dr Kwan at [phone], agrees that admission to [facility] is appropriate. Dr Kwan is comfortable with pt staying at [facility] for observation. 01/01/18 01:11 Discussed with : Jose Allen Will see patient in: hospital (observation) Counseled pt/family regarding: lab results, diagnosis, rad results - Departure Time of Disposition: 01:10 Departure Disposition: Observation (per Dr Denton Allen for Dr Narayan.) Clinical Impression: Near syncope, Elevated troponin I level Condition: Good Critical Care Time: No Critical Care Time(excluding separately billable procedures): 30-74 minutes Referrals: TRENT NARAYAN MD [Primary Care Provider] -
[2017-12-31] MEDS ORDERED: Sodium Chloride 0.9% 1000 ML 1,000 ML ONE (21:04)
[2017-12-31 21:24] LABS: BASOPHIL % 0.6 % (0.0-0.4); Basophil (Absolute #) 0.05 (0-0.4); Eosinophil % 2.3 % (0.00-5.0); Eosinophil (Absolute #) 0.19 (0-0.5); Granulocyte Absolute (ANC) 5.45 (1.4-6.9); Hematocrit 33.6 % (35-47); Hemoglobin 10.5 gm/dl (12.0-16.0); Lymphocyte (Absolute #) 1.58 (1.0-4.6); Lymphocytes % 19.4 % (24.0-44.0); Mean Cell Volume 76.2 fl (78-100); Mean Corpuscular Hemoglobin 23.8 pg (26-32); Mean Corpuscular Hgb Concent. 31.3 g/dl (32-36); Mean Platelet Volume 10.2 fl (6-9.5); Monocyte (Absolute #) 0.87 (0.0-1.3); Monocytes % 10.7 % (0.0-12.0); Platelet Count 253 K/mm3 (150-450); Red Blood Count 4.41 M/mm3 (4.1-5.4); Red Cell Distribution Width 17.6 % (11.5-14.0); White Blood Count 8.1 K/mm3 (4.0-10.5)
[2017-12-31 21:37] LABS: INR 2.41 (0.8-3.0)
[2017-12-31 21:59] LABS: Appearance CLEAR (CLEAR); Bilirubin NEGATIVE (NEGATIVE); Blood NEGATIVE Ery/ul (0-5); Glucose NEGATIVE (NEGATIVE); Ketones NEGATIVE (NEGATIVE); Leukocyte Esterase NEGATIVE (NEGATIVE); Nitrite NEGATIVE (NEGATIVE); Protein,Urine Dip NEGATIVE (Negative); Urobilinogen NORMAL mg/dL (0-1)
[2017-12-31 22:13] LABS: ALBUMIN 4.3 g/dL (3.5-5.0); ALKALINE PHOSPHATASE 135 U/L (38-126); BLOOD UREA NITROGEN 20 mg/dL (7-17); CHLORIDE 107 mmol/L (98-107); Calcium 9.3 mg/dL (8.4-10.2); Carbon Dioxide 23 mmol/L (22-30); Creatinine 1 0.67 mg/dL (0.52-1.04); Glucose 107 mg/dL (74-106); Potassium 4.2 mmol/L (3.5-5.1); SGOT/AST 27 U/L (14-36); SGPT/ALT 25 U/L (0-35); SODIUM 140 mmol/L (137-145); Total Protein 7.6 g/dL (6.3-8.2)
[2017-12-31 22:17] LABS: ETHYL ALCOHOL < 10 mg/dL (0-10)
[2018-01-01] MEDS ORDERED: Zofran 4 MG/2 ML VIAL IV PRN (01:46)
[2018-01-01] MEDS ORDERED: TYLENOL 325 MG PO PRN (01:46)
[2018-01-01] MEDS: Sodium Chloride 0.9% 1000 ML 1,000 ML IV SCH ×3 (02:56→23:41)
[2018-01-01] MEDS ORDERED: PROVENTIL COMMON CANISTER IH PRN (03:10)
[2018-01-01 05:25] LABS: BASOPHIL % 0.7 % (0.0-0.4); Basophil (Absolute #) 0.05 (0-0.4); Eosinophil % 2.7 % (0.00-5.0); Eosinophil (Absolute #) 0.21 (0-0.5); Granulocyte Absolute (ANC) 4.76 (1.4-6.9); Granulocytes % 62.1 % (36.0-66.0); Hematocrit 31.6 % (35-47); Hemoglobin 9.8 gm/dl (12.0-16.0); Lymphocyte (Absolute #) 1.72 (1.0-4.6); Lymphocytes % 22.4 % (24.0-44.0); Mean Cell Volume 76.9 fl (78-100); Mean Corpuscular Hemoglobin 23.8 pg (26-32); Mean Platelet Volume 9.7 fl (6-9.5); Monocyte (Absolute #) 0.93 (0.0-1.3); Monocytes % 12.1 % (0.0-12.0); Platelet Count 227 K/mm3 (150-450); Red Blood Count 4.11 M/mm3 (4.1-5.4); Red Cell Distribution Width 17.6 % (11.5-14.0); White Blood Count 7.7 K/mm3 (4.0-10.5)
[2018-01-01 05:49] LABS: ANION GAP 12.9 MEQ/L (5-15); BLOOD UREA NITROGEN 15 mg/dL (7-17); CHLORIDE 110 mmol/L (98-107); Carbon Dioxide 24 mmol/L (22-30); Creatinine 1 0.63 mg/dL (0.52-1.04); Glucose 113 mg/dL (74-106); Potassium 3.7 mmol/L (3.5-5.1); SODIUM 143 mmol/L (137-145)
[2018-01-01] MEDS ORDERED: Nitrostat 0.4 MG Tablet SL PRN (07:10)
[2018-01-01] MEDS ORDERED: MILK OF MAGNESIA 30 ML PO PRN (07:10)
[2018-01-01] MEDS ORDERED: MAALOX ES 30 ML UNIT DOSE PO PRN (07:10)
[2018-01-01] MEDS ORDERED: Senokot-S Tablet PO PRN (07:10)
[2018-01-01] MEDS ORDERED: Singulair 10 MG PO PRN (07:59)
[2018-01-01] MEDS ORDERED: NON-FORMULARY ITEM (Omeprazole [Prilosec] 40 MG) PO SCH (10:00)
[2018-01-01] MEDS ORDERED: NON-FORMULARY ITEM (Potassium Chloride 20 Meq [Klor-Con 20 Meq] 20 MEQ) PO SCH (10:00)
[2018-01-01] MEDS ORDERED: BABY ASPIRIN 81 MG CHEW PO SCH (10:00)
[2018-01-01] MEDS ORDERED: MULTIVITAMIN WITH MINERALS PO SCH (10:00)
[2018-01-01] MEDS: BUMEX 1 MG PO SCH (10:13)
[2018-01-01] MEDS: ECOTRIN 81 MG PO SCH (10:14)
[2018-01-01] MEDS: Cozaar 50 MG PO SCH (10:14)
[2018-01-01] MEDS: Coreg 3.125 MG PO SCH (10:14)
[2018-01-01] MEDS: Klor Con 10 MEQ PO SCH ×2 (10:14→22:44)
[2018-01-01] MEDS: SYNTHROID 100 MCG PO SCH (10:15)
[2018-01-01] MEDS: THERAGRAN MULTIVITAMIN PO SCH (10:15)
[2018-01-01] MEDS: Protonix 40MG Tablet PO SCH (10:15)
--- NOTE | 2018-01-01 10:16 | XRAY ---
Indication: Dizziness. Near-syncope. Comparison: May 31, 2017. PA/lateral chest remains clear again with incidental scattered calcified granulomas. Heart remains borderline enlarged again demonstrating previous cardiothoracic surgery with left-sided dual-lead pacemaker. Bony thorax intact again with mild osteopenia and degenerative changes. Upper abdomen demonstrates stable bariatric sleeve. Impression: Stable nonacute chest with chronic features.
[2018-01-01 16:23] LABS: TSH, 3RD Generation 0.583 mIU/L (0.47-4.68)
[2018-01-01] MEDS ORDERED: Coumadin 3 MG PO SCH (18:00)
--- NOTE | 2018-01-01 21:17 | XRAY ---
Indication: Dizziness. Multiple contiguous axial images obtained through the head without contrast. Comparison: September 04, 2015. Stable age-appropriate global atrophy and remote appearing left caudate head lacunar infarct. No acute intracranial hemorrhage, abnormal extra-axial fluid collection, or mass effect. Fourth ventricle is midline without hydrocephalus. Bony calvarium intact. Visualized paranasal sinuses and mastoid air cells are clear. Impression: Stable left caudate head remote lacunar infarct. No new or acute intracranial abnormalities. Comment: Preliminary interpretation was made by [facility]. No discrepancy. CTDI 67.80
[2018-01-02 06:02] LABS: Hematocrit 32.6 % (35-47); Hemoglobin 9.9 gm/dl (12.0-16.0); Mean Cell Volume 76.9 fl (78-100); Mean Corpuscular Hemoglobin 23.3 pg (26-32); Mean Corpuscular Hgb Concent. 30.4 g/dl (32-36); Mean Platelet Volume 10.4 fl (6-9.5); Platelet Count 225 K/mm3 (150-450); Red Blood Count 4.24 M/mm3 (4.1-5.4); Red Cell Distribution Width 17.6 % (11.5-14.0); White Blood Count 6.8 K/mm3 (4.0-10.5)
[2018-01-02 06:15] LABS: INR 2.05 (0.8-3.0)
[2018-01-02 06:23] LABS: ANION GAP 13.5 MEQ/L (5-15); BLOOD UREA NITROGEN 16 mg/dL (7-17); CHLORIDE 112 mmol/L (98-107); Calcium 9.2 mg/dL (8.4-10.2); Carbon Dioxide 24 mmol/L (22-30); Creatinine 1 0.64 mg/dL (0.52-1.04); Glucose 88 mg/dL (74-106); SODIUM 145 mmol/L (137-145)
[2018-01-02 06:33] LABS: Risk Ratio 3.4
[2018-01-02] MEDS: Sodium Chloride 0.9% 1000 ML 1,000 ML IV SCH (09:39)
[2018-01-02] MEDS: Coreg 3.125 MG PO SCH (09:39)
[2018-01-02] MEDS: Klor Con 10 MEQ PO SCH (09:39)
[2018-01-02] MEDS: Protonix 40MG Tablet PO SCH (09:39)
[2018-01-02] MEDS: SYNTHROID 100 MCG PO SCH (09:39)
[2018-01-02] MEDS: Cozaar 50 MG PO SCH (09:39)
[2018-01-02] MEDS: THERAGRAN MULTIVITAMIN PO SCH (09:39)
[2018-01-02] MEDS: ECOTRIN 81 MG PO SCH (09:40)
[2018-01-02] MEDS: BUMEX 1 MG PO SCH (09:41)
--- NOTE | 2018-01-02 10:21 | XRAY ---
Exam: Bilateral duplex Doppler carotid ultrasound exam from 01/02/2018. Comparison: CT of the head without IV contrast from 01/01/2018. Indication: Lacunar infarct within head of caudate nucleus on the left, evidently stable from prior CT of the head from 08/25/2006. Technique: Thopmson scale imaging, color blood flow imaging, and Doppler tracings were obtained of both carotid arteries and cervical vertebral arteries. Findings: On the right side, peak systolic flow velocities in centimeters per second measure 87 and 63 within the proximal and distal common carotid artery, 78 within the external carotid artery, and 75, 59, and 61 within the proximal, mid, and distal internal carotid artery. The right vertebral artery revealed a peak systolic flow velocity of 55 cm/s and revealed antegrade flow. No significant fibrocalcific plaque was seen at the carotid artery bifurcation or internal carotid artery. The ICA to CCA ratio on the right was 1.2. On the left side, there was noted to be marked tortuosity of the mid internal carotid artery. No significant fibrocalcific plaque was seen at the carotid artery bifurcation or visualized internal carotid artery. Peak systolic flow velocities in centimeters per second measured 82 and 55 within the proximal and distal common carotid artery, 93 within the external carotid artery, and 68, 83, and 81 within the proximal, mid, and distal internal carotid artery. The ICA to CCA peak systolic flow velocity ratio is 1.5 which is not significantly elevated. The left vertebral artery revealed antegrade flow with a peak systolic flow velocity of 63 cm/s. Impression: 1. No evidence of hemodynamically significant stenosis of 50% or greater diameter reduction is seen within either visualized carotid artery. No significant fibrocalcific plaque is seen at the carotid artery bifurcations or visualized internal carotid arteries. There is incidental note of significant tortuosity of the mid left internal carotid artery.
--- NOTE | 2018-01-02 12:09 | HP ---
HISTORY OF PRESENT ILLNESS: Jojo Gomez is a 72 year old with past medical history of hypertension, coronary artery disease, congestive heart failure, atrial fibrillation, chronic obstructive pulmonary disease, hypothyroidism, anxiety and depression. She presented to the emergency room last night with sudden onset episode of nearly passing out. The symptoms started while she was in kitchen cooking hamburger. The patient felt very weak, was nauseated and had mild shortness of breath and sweating. The symptoms lasted a few minutes. She did not have any chest pain along with those symptoms. Her symptoms had improved by the time she presented to the emergency room, as per patient. Upon initial evaluation in the emergency room the patient was noted to have blood pressure 130/74, heart rate 60, respiratory rate 20 and temperature 97.4F. Oxygen saturation of 100%. Lab work up was notable for BUN 20, creatinine 0.67. Also initial troponin was 0.037. The patient had declined transfer to any other facility. I advised the emergency room physician to contact the patient's scheduling administrator. The scheduling administrator covering for the patient's regular scheduling administrator advised observation at [facility]. The patient was admitted. Since admission her course has been essentially more or less unremarkable. At the time of this evaluation she is alert, awake and comfortable. She states she feels better than yesterday. She denied chest pain. She denies any new problems. PAST MEDICAL HISTORY: As noted above. PAST SURGICAL HISTORY: Status post pacemaker placement, cholecystectomy, appendectomy, cardiac catheterization, valve replacement, hysterectomy, gastric bypass. ALLERGIES: PENICILLIN, CIPROFLOXACIN. MEDICATIONS: Current medications were reviewed. FAMILY HISTORY: Noncontributory. SOCIAL HISTORY: No history of smoking or illicit drug use. REVIEW OF SYSTEMS: Denies headache. History of dizziness, near syncopal episode yesterday. Denies loss of consciousness. Complains of generalized weakness. Complains of fatigue. Denies chest pain. Mild shortness of breath yesterday which has resolved. Denies palpitations. Denies cough. Denies abdominal pain. She had mild nausea which has resolved. She is able to tolerate diet today. Denies vomiting. Denies constipation or diarrhea. Denies urinary complaints. PHYSICAL EXAMINATION: An elderly woman lying comfortably in bed, not in acute distress. VITAL SIGNS: Blood pressure 140/68, heart rate 68, respiratory rate 20, temperature 97.9F. HEENT: Pallor is present. No icterus is noted. NECK: No JVD is present. CVS: S1, S2 present. RESPIRATORY: Breath sounds are bilaterally diminished and clear to auscultation. ABDOMEN: Obese, soft, nontender. NEURO: She is alert and oriented x3. Evaluation of motor strength in bilateral upper and lower extremities reveals 5/5 motor strength. EXTREMITIES: No edema on bilateral lower extremities. LABORATORY DATA AND TESTS: Labs from admission were notable for CBC white blood cell 8.1, hemoglobin 10.5, hematocrit 33.6, PLT 253,000. International normalized ratio 24.1. CMP was notable for glucose 107, BUN 20, creatinine 0.67, alkaline phosphatase 135. Today's CBC is unremarkable except hemoglobin 9.8, hematocrit 31.6. Today's BMP shows chloride 110, BUN 15, creatinine 0.63, glucose 113. NT-BNP on admission was 500. Initial troponin of 0.037 followed by another 0.037, 0.43 and 0.033. UA was essentially negative, ethanol alcohol was less than 10. Initial EKG showed paced rhythm. A follow up EKG showed paced rhythm. Chest x-ray showed stable nonacute chest with chronic features. ASSESSMENT: A 72 year old woman with impression: 1) Status post near syncopal episode. 2) Generalized weakness. 3) Elevated troponin, now resolved. 4) History of hypertension/congestive heart failure. 5) History of hypothyroidism. 6) History of atrial fibrillation. 7) History of valve replacement. 8) History of chronic obstructive pulmonary disease. 9) Anxiety/depression. PLAN: The patient is admitted for further monitoring and management. Will continue to monitor neurological-hemodynamic status. Initial troponins were positive however the patient's scheduling administrator was contacted regarding troponin level from this morning. As per the patient's nurse, cardiology recommended obtaining another troponin every six hours apart from prior troponin and no additional recommendation/changes at this time. Repeat troponin level is within normal limits. The patient is otherwise improving clinically. She denies any chest pain or other symptoms as such. In view of her near syncopal episode, will obtain orthostatic blood pressure readings, TSH and CT head. If continues to improve will ambulate the patient and likely discharge home later today. The plan was discussed with the patient. She seems to be in understanding and agreement. Discussed with patient's nurse, Olvin.
[2018-01-02 16:35] VITALS: BP 133/58; PULSE 71; O2SAT 98
--- NOTE | 2018-01-03 11:48 | PCM.SSS ---
History of Present Illness - Chief Complaint Chief Complaint: near syncope History of Present Illness: is a 72 year old female.was admitted with near syncope, see Dr Denton Allen H& P - Review of Systems Constitutional: No Fever, No Chills Eyes: No Symptoms Ears, Nose, & Throat: No Symptoms Respiratory: No Cough, No Short Of Breath Cardiac: No Chest Pain, No Edema, No Syncope Abdominal/Gastrointestinal: No Abdominal Pain, No Nausea, No Vomiting, No Diarrhea Genitourinary Symptoms: No Dysuria Musculoskeletal: No Back Pain, No Neck Pain Skin: No Rash Neurological: No Dizziness, No Focal Weakness, No Sensory Changes Psychological: No Symptoms Endocrine: No Symptoms Hematologic/Lymphatic: No Symptoms Immunological/Allergic: No Symptoms Medications & Allergies Home Medications: Home Medication List Albuterol Sulfate [Proair Hfa] 2 puff IH UD PRN 09/12/13 [History Confirmed ] Omeprazole [Prilosec] 40 mg PO DAILY 09/12/13 [History Confirmed 01/01/18] Potassium Chloride 20 Meq [Klor-Con 20 MEQ] 20 meq PO BID 09/12/13 [History Confirmed 01/01/18] Warfarin Sodium 3 mg [Coumadin 3 MG] 3 mg PO DAILY 09/19/15 [History Confirmed 01/01/18] Bumetanide 1 mg [Bumex 1 mg] 1 mg PO DAILY 11/26/16 [History Confirmed ] Carvedilol 3.125 mg [Coreg 3.125 MG] 3.125 mg PO QAM 11/26/16 [History Confirmed 01/01/18] Levothyroxine Sodium 100 Mcg [Synthroid 100 Mcg] 100 mcg PO DAILY 11/26/16 [History Confirmed 01/01/18] Losartan Potassium 50 mg [Cozaar 50 MG] 50 mg PO DAILY 11/26/16 [History Confirmed 01/01/18] Montelukast Sodium [Singulair] 10 mg PO UD PRN 11/26/16 [History Confirmed 01/01] Multivitamin with Minerals [Daily Vitamin Formula-Minerals] 1 tab PO DAILY 11/26 [History Confirmed 01/01/18] Aspirin 81 gm Chew [Baby Aspirin 81 mg Chew] 81 mg PO DAILY 01/01/18 [ History Confirmed 01/01/18] Allergies/Adverse Reactions: Allergies Allergy/AdvReac Type Severity Reaction Status Date / Time Penicillins Allergy Verified 01/01/18 03:24 ciprofloxacin AdvReac Verified 01/01/18 03:24 - Past Medical History Past Medical History: Yes Neurological History: No Pertinent History ENT History: Cataracts Cardiac History: Arrhythmia, Congestive Heart Failure, Hypertension, Other Respiratory History: COPD, Pneumonia Endocrine Medical History: Hypothyroidism Musculoskelatal History: Arthritis GI Medical History: Diverticulitis, Diverticulosis, Gallbladder Disease History: No Pertinent History Pyscho-Social History: Anxiety, Depression Reproductive Disorders: No Pertinent History Comment: A-fib - Female History Are you now?: No - Past Surgical History Past Surgical History: Yes Neuro Surgical History: No Pertinent History Cardiac History: CABG, Cardiac Catheterization, Pacemaker, Valve Replacement Respiratory Surgery: No Pertinent History GI Surgical History: Appendectomy, Cholecystectomy, Other Genitourinary Surgical Hx: No Pertinent History Musculskeletal Surgical Hx: No Pertinent History Female Surgical History: Hysterectomy Other Surgical History: gastric bypass - Social History Smoking Status: Former smoker Exposure to second hand smoke: No Alcohol: None Drug Use: none - Physical Exam Vital Signs: Vital Signs - 24 hr Temp Pulse Resp BP Pulse Ox 01/02/18 16:00 97.9 F 71 18 133/58 98 01/02/18 12:00 98.0 F 52 L 21 123/61 95 Oxygen-Last 24 hours O2 Percentage 3 Liters = 32% O2 Percentage 3 Liters = 32% General Appearance: no apparent distress, alert Neurologic Exam: alert, oriented x 3, cooperative, normal mood/affect, nml cerebellar function, nml station & gait, sensation nml, No motor deficits Eye Exam: PERRL/EOMI, eyes nml inspection Ears, Nose, Throat Exam: normal ENT inspection, TMs normal, pharynx normal, moist mucous membranes Neck Exam: normal inspection, non-tender, supple, full range of motion Respiratory Exam: normal breath sounds, lungs clear, No respiratory distress Cardiovascular Exam: regular rate/rhythm, normal heart sounds, normal peripheral pulses Gastrointestinal/Abdomen Exam: soft, normal bowel sounds, No tenderness, No mass Back Exam: normal inspection, normal range of motion, No CVA tenderness, No vertebral tenderness Extremity Exam: normal inspection, normal range of motion, pelvis stable Skin Exam: normal color, warm, dry, No rash Lymphatic Exam: No adenopathy Results - Radiology Impressions Radiology Exams & Impressions: Radiology Procedures Category Date Time Status CAROTID BILATERAL [US] Urgent Exams 01/02/18 08:00 Completed ECHO W/2D AND DOPPLER [US] Urgent Exams 01/02/18 08:00 Taken HEAD WITHOUT CONTRAST [CT] Routine Exams 01/01/18 15:08 Completed - Other Procedures and Tests Respiratory Therapy 01/03/18 05:00 EKG ONCE 01/04/18 05:00 EKG ONCE Assessment/Plan (1) Near syncope Status: Acute Onset Date: ~01/01/18 Assessment & Plan: Chief Complaint Diagnosis near syncope Allergies Allergy/AdvReac Type Severity Reaction Status Date / Time Penicillins Allergy Verified 01/01/18 03:24 ciprofloxacin AdvReac Verified 01/01/18 03:24 Vital Signs (Last 24 hours) Temp Pulse Resp BP Pulse Ox 01/02/18 16:00 97.9 F 71 18 133/58 98 01/02/18 12:00 98.0 F 52 L 21 123/61 95 Home Medications Medication Instructions Recorded Confirmed Last Taken Type Aspirin 81 gm Chew [Baby 81 mg PO DAILY 01/01/18 01/01/18 12/31/17 History Aspirin 81 mg Chew] Current Medications Discontinued Medications Generic Name Dose Route Start Last Admin Trade Name Freq PRN Reason Stop Dose Admin Acetaminophen 650 mg 01/01/18 01:46 Tylenol 325 Mg PO 01/31/18 01:45 Q4H PRN PRN PAIN AND/OR FEVER Al Hydrox/Mg Hydrox/Simethicone 30 ml 01/01/18 07:10 Maalox Es 30 Ml Unit Dose PO 01/31/18 07:09 PRN PRN INDIGESTION Albuterol Sulfate 2 puff 01/01/18 03:10 Proventil Common Canister IH 01/31/18 03:09 QIDPRN PRN SHORTNESS OF BREATH/WHEEZING Aspirin 81 mg 01/01/18 10:00 01/02/18 09:40 Ecotrin 81 Mg PO 01/31/18 09:59 81 mg DAILY RICH Administration Bumetanide 1 mg 01/01/18 10:00 01/02/18 09:41 Bumex 1 Mg PO 01/31/18 09:59 1 mg DAILY RICH Administration Carvedilol 3.125 mg 01/01/18 10:00 01/02/18 09:39 Coreg 3.125 Mg PO 01/31/18 09:59 3.125 mg QAM RICH Administration Sodium Chloride 500 mls @ 999 mls/hr 12/31/17 20:38 12/31/17 21:52 Sodium Chloride 0.9% 1000 Ml IV 12/31/17 21:08 Infused .Q31M STA Infusion Sodium Chloride Confirm 12/31/17 21:04 Sodium Chloride 0.9% 1000 Ml Administered 12/31/17 21:05 Dose 1,000 mls @ ud .ROUTE .STK-MED ONE Sodium Chloride 1,000 mls @ 100 mls/hr 01/01/18 01:46 01/02/18 09:39 Sodium Chloride 0.9% 1000 Ml IV 01/31/18 01:45 100 mls/hr .Q10H RICH Administration Levothyroxine Sodium 100 mcg 01/01/18 10:00 01/02/18 09:39 Synthroid 100 Mcg PO 01/31/18 09:59 100 mcg DAILY RICH Administration Losartan Potassium 50 mg 01/01/18 10:00 01/02/18 09:39 Cozaar 50 Mg PO 01/31/18 09:59 50 mg DAILY RICH Administration Magnesium Hydroxide 30 - 60 ml 01/01/18 07:10 Milk Of Magnesia 30 Ml PO 01/31/18 07:09 HS PRN CONSTIPATION Montelukast Sodium 10 mg 01/01/18 07:59 Singulair 10 Mg PO 01/31/18 07:58 UD PRN breathing Multivitamins Therapeutic 1 tab 01/01/18 10:00 01/02/18 09:39 Theragran Multivitamin PO 01/31/18 09:59 1 tab DAILY RICH Administration Nitroglycerin 0.4 mg 01/01/18 07:10 Nitrostat 0.4 Mg Tablet SL 01/31/18 07:09 .Q5MIN PRN CHEST PAIN Ondansetron HCl 4 mg 01/01/18 01:46 Zofran 4 Mg/2 Ml Vial IV 01/31/18 01:45 Q6H PRN PRN NAUSEA/VOMITING Pantoprazole Sodium 40 mg 01/01/18 10:00 01/02/18 09:39 Protonix 40mg Tablet PO 01/31/18 09:59 40 mg DAILY RICH Administration Potassium Chloride 20 meq 01/01/18 10:00 01/02/18 09:39 Klor Con 10 Meq PO 01/31/18 09:59 20 meq BID RICH Administration Senna/Docusate Sodium 2 udtab 01/01/18 07:10 Senokot-S Tablet PO 01/31/18 07:09 BID PRN PRN CONSTIPATION Warfarin Sodium 3 mg 01/01/18 18:00 01/01/18 17:50 Coumadin 3 Mg PO 01/31/18 17:59 3 mg DAILY AT 1800 RICH Administration Intake & Output (Last 24 hours) 12/31/17 01/01/18 01/02/18 01/03/18 11:59 11:59 11:59 11:59 Intake Total 617 3873 240 Output Total 1175 3650 500 Balance -558 223 -260 Weight 87.5 kg 90.6 kg Orders (Last 24 hours) Category Date Time Status EKG ONCE RT 01/03/18 05:00 Active EKG ONCE RT 01/04/18 05:00 Active Patient Care Notes (Last 24 hours) 01/02/18 13:25 (created 01/02/18 16:02) Case Management Note by Taylor Zuniga DR. ROUNDED AND EVALUATED, DISCUSSED ATRIAL FIBRILLATION AND SYNCOPAL EPISODE. PT VERBALIZED UNDERSTANDING TO ALL INFORMATION AND ABLE TO REPEAT INFORMATION BACK. DR. NARAYAN ENCOURAGED PT TO FOLLOWUP WITH ENGINEERING MECHANIC IN [facility] SOON POSSIBLE, AND NOTED THAT PT HAD CANCELLED HER LAST APPT WITH HIM. PT REPORTS THAT HER DAUGHTER HAS AN APPT SCHEDULED FOR HER AND THAT SHE WILL GO. DENIES [facility] NEEDS FOR DISCHARGE. HAS RX FOR WALKER, REQUESTS REFERRAL TO [facility] FOR DELIVERY PRIOR TO DC HOME. FAXED INFORMATION TO [facility]. REPORTS THAT HER FRIENDS WILL PICK HER UP TODAY. Initialized on 01/02/18 16:02 - END OF NOTE (2) History of gastric bypass Status: Chronic Code(s): Z98.890 - OTHER SPECIFIED POSTPROCEDURAL STATES Hospital Summary - Hospital Course Hospital Course: All Active Problems Elevated troponin I level (Acute ~01/01/18) Near syncope (Acute ~01/01/18) History of gastric bypass (Chronic) Last Vital Signs Temp 97.9 F 01/02/18 16:00 Pulse 71 01/02/18 16:00 Resp 18 01/02/18 16:00 BP 133/58 01/02/18 16:00 Pulse Ox 98 01/02/18 16:00 Allergies Penicillins Allergy (Verified 01/01/18 03:24) ciprofloxacin Adverse Reaction (Verified 01/01/18 03:24) Intake & Output 01/02/18 01/03/18 11:59 11:59 Intake Total 3873 240 Output Total 3650 500 Balance 223 -260 Weight 90.6 kg Orders 01/03/18 05:00 EKG ONCE 01/04/18 05:00 EKG ONCE - Vitals & Intake/Output Vital Signs: Vital Signs Temperature 97.9 F 01/02/18 16:00 Pulse Rate 71 01/02/18 16:00 Respiratory Rate 18 01/02/18 16:00 Blood Pressure 133/58 01/02/18 16:00 O2 Sat by Pulse Oximetry 98 01/02/18 16:00 Oxygen-Last Documented O2 Percentage 3 Liters = 32% Intake & Output: Intake & Output 12/31/17 01/01/18 01/02/18 01/03/18 11:59 11:59 11:59 11:59 Intake Total 617 3873 240 Output Total 1175 3650 500 Balance -558 223 -260 Weight 87.5 kg 90.6 kg - Lab Result Diagrams: 01/02/18 05:30 01/02/18 05:30 - Radiology Exams Ordered Rad Exams-Entire Visit: Radiology Procedures Category Date Time Status CAROTID BILATERAL [US] Urgent Exams 01/02/18 08:00 Completed ECHO W/2D AND DOPPLER [US] Urgent Exams 01/02/18 08:00 Taken HEAD WITHOUT CONTRAST [CT] Routine Exams 01/01/18 15:08 Completed - Procedures and Test Procedures and Tests throughout Hospitalization: Therapy Orders & Screens 01/01/18 01:46 EKG REPEAT IN AM Comment: 01/01/18 03:11 Respiratory Therapy Assessment DAILY Comment: Diagnosis: near syncope 01/01/18 03:29 Oxygen NASAL CANNULA 3 lpm Comment: Diagnosis: near syncope 01/01/18 07:11 EKG STAT Comment: Diagnosis: near syncope 01/01/18 08:11 EKG ONCE Comment: Diagnosis: near syncope 01/01/18 16:00 EKG Q8HX2,QAMX3,PRN Comment: Diagnosis: near syncope 01/02/18 05:00 EKG ONCE Comment: Diagnosis: near syncope 01/02/18 08:00 PT Eval & Treat (MD Order) ROUTINE Reason for Eval:: Lacunar infarct on CT. Near syncopal episode at home. Diagnosis: near syncope 01/03/18 05:00 EKG ONCE Comment: Diagnosis: near syncope 01/04/18 05:00 EKG ONCE Comment: Diagnosis: near syncope - Discharge Discharge Date: 01/02/18 Disposition: Home, Self-Care Condition: Good Prescriptions: Continue Albuterol Sulfate [Proair Hfa] 2 puff IH UD PRN PRN Reason: dyspnea Potassium Chloride 20 Meq [Klor-Con 20 MEQ] 20 meq PO BID Omeprazole [Prilosec] 40 mg PO DAILY Warfarin Sodium 3 mg [Coumadin 3 MG] 3 mg PO DAILY Losartan Potassium 50 mg [Cozaar 50 MG] 50 mg PO DAILY Carvedilol 3.125 mg [Coreg 3.125 MG] 3.125 mg PO QAM Bumetanide 1 mg [Bumex 1 mg] 1 mg PO DAILY Multivitamin with Minerals [Daily Vitamin Formula-Minerals] 1 tab PO DAILY Levothyroxine Sodium 100 Mcg [Synthroid 100 Mcg] 100 mcg PO DAILY Montelukast Sodium [Singulair] 10 mg PO UD PRN PRN Reason: breathing Aspirin 81 gm Chew [Baby Aspirin 81 mg Chew] 81 mg PO DAILY Instructions: Atrial Fibrillation (DC), Syncope (Fainting) (DC) Additional Instructions: PLEASE FOLLOWUP WITH YOUR ENGINEERING MECHANIC (HEART DOCTOR) SOON POSSIBLE. Follow up with: TRENT NARAYAN MD [Primary Care Provider] - Call for Appointment Forms: Discharge Instructions
--- NOTE | 2018-01-05 08:45 | ECHO ---
DATE OF TEST: 01/02/2018 INDICATION: CVA. FINDINGS: 1) Mild concentric left ventricular hypertrophy with normal left ventricular cavity size and mild left ventricular systolic function. Overall left ventricular ejection fraction is 40-45%. There is a severe inferior hypokinesis and paradoxical septal wall motion. Left ventricle inflow Doppler examination is suggestive of abnormal relaxation pattern. Right ventricle is mildly dilated with normal right ventricular systolic function. 2) Moderate to severe left atrial enlargement and moderate right atrial enlargement. There is possibility of pacemaker lead in the right atrium. 3) There is biprosthetic mitral valve with preserved mitral valve excursion. Gradient across the mitral valve is within acceptable limits. No mitral regurgitation was detected. 4) There is a biprosthetic aortic valve also with preserved valve excursion. No aortic insufficiency was noted. Aortic root is normal in diameter. 5) Tricuspid valve is grossly normal with moderate 2+ tricuspid regurgitation and severe pulmonary hypertension. 6) Pulmonary artery systolic pressure was estimated at 85 mm of Mercury. Pulmonic valve grossly normal with mild 1+ pulmonic insufficiency. 7) No pericardial effusion. 8) Inferior vena cava is dilated with partial inspiratory collapse. IMPRESSION: 1) TECHNICALLY FAIR STUDY. 2) MILD CONCENTRIC LEFT VENTRICULAR HYPERTROPHY WITH MILDLY REDUCED LEFT VENTRICULAR SYSTOLIC FUNCTION. OVERALL LEFT VENTRICULAR EJECTION FRACTION IS 40-45%. THERE IS SEVERE INFERIOR HYPOKINESIS AND PARADOXICAL SEPTAL WALL MOTION. 3) MILDLY DILATED RIGHT VENTRICLE WITH SEVERE PULMONARY HYPERTENSION AND ESTIMATED PA SYSTOLIC PRESSURE OF 85 MM OF MERCURY. 4) MODERATE 2+ TRICUSPID REGURGITATION. 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 NO MITRAL REGURGITATION WAS DETECTED. 6) THERE IS WELL FUNCTIONING BIPROSTHETIC AORTIC VALVE WITH PEAK GRADIENT ACROSS THE VALVE OF 28 MM OF MERCURY AND MEAN GRADIENT OF 14 MMG WHICH ARE NORMAL FOR THIS TYPE AND POSITION OF VALVE PROSTHESIS.
== END 2018-01-02 15:30 | disposition home or self-care (01) ==
LOC: ED 20:06 → MED SURG 01-01 02:01
PROVIDERS: ADMIT General Practice; ATTEND General Practice
DX: R55 Syncope and collapse (principal); Z98.84 Bariatric surgery status; I11.0 Hypertensive heart disease with heart failure; I50.9 Heart failure, unspecified; I10 Essential (primary) hypertension; J44.9 Chronic obstructive pulmonary disease, unspecified; E03.9 Hypothyroidism, unspecified; M19.90 Unspecified osteoarthritis, unspecified site; F41.8 Other specified anxiety disorders; I48.91 Unspecified atrial fibrillation; I25.810 Atherosclerosis of coronary artery bypass graft(s) without angina pectoris; Z95.0 Presence of cardiac pacemaker; R53.1 Weakness; Z95.2 Presence of prosthetic heart valve; Z79.899 Other long term (current) drug therapy
CPT/HCPCS: 36000; 36415; 70450; 71046; 80048; 80053; 80061; 80307; 81002; 83036; 83721; 83735; 83880; 84443; 84484; 85025; 85027; 85610; 93005; 93041; 93268; 93306; 93880; 94760; 96360; 96361; 99285; A9270-GY; G0378; G0480

== ENCOUNTER 2018-05-16 20:21 | Emergency (ER) | payer MEDICARE ==
[2018-05-16] MEDS ORDERED: ANTIVERT 25 MG PO ONE (20:41)
[2018-05-16] MEDS ORDERED: Zofran 4 MG/2 ML VIAL IV ONE (20:41)
[2018-05-16] MEDS ORDERED: Sodium Chloride 0.9% 1000 ML 1,000 ML IV SCH (20:45)
[2018-05-16] MEDS ORDERED: Zofran 4 MG/2 ML VIAL ONE (20:49)
[2018-05-16] MEDS ORDERED: Sodium Chloride 0.9% 1000 ML 1,000 ML ONE (20:50)
[2018-05-16] MEDS ORDERED: ANTIVERT 25 MG ONE (20:50)
[2018-05-16 21:15] LABS: BASOPHIL % 0.5 % (0.0-0.4); Basophil (Absolute #) 0.04 (0-0.4); Eosinophil % 3.4 % (0.00-5.0); Eosinophil (Absolute #) 0.26 (0-0.5); Granulocyte Absolute (ANC) 4.73 (1.4-6.9); Granulocytes % 62.8 % (36.0-66.0); Hemoglobin 9.4 gm/dl (12.0-16.0); Lymphocyte (Absolute #) 1.62 (1.0-4.6); Lymphocytes % 21.5 % (24.0-44.0); Mean Cell Volume 76.7 fl (78-100); Mean Corpuscular Hgb Concent. 30.3 g/dl (32-36); Mean Platelet Volume 10.5 fl (6-9.5); Monocyte (Absolute #) 0.89 (0.0-1.3); Monocytes % 11.8 % (0.0-12.0); Platelet Count 238 K/mm3 (150-450); Red Blood Count 4.04 M/mm3 (4.1-5.4); Red Cell Distribution Width 17.7 % (11.5-14.0); White Blood Count 7.5 K/mm3 (4.0-10.5)
[2018-05-16 21:22] LABS: Mean Corpuscular Hemoglobin 23.2 pg (26-32)
[2018-05-16 21:31] LABS: ALKALINE PHOSPHATASE 130 U/L (38-126); ANION GAP 13.6 MEQ/L (5-15); BLOOD UREA NITROGEN 20 mg/dL (7-17); CHLORIDE 108 mmol/L (98-107); Calcium 9.3 mg/dL (8.4-10.2); Carbon Dioxide 24 mmol/L (22-30); Creatinine 1 0.92 mg/dL (0.52-1.04); Glucose 104 mg/dL (74-106); Potassium 4.4 mmol/L (3.5-5.1); SGOT/AST 25 U/L (14-36); SGPT/ALT 20 U/L (0-35); SODIUM 141 mmol/L (137-145); Total Protein 7.1 g/dL (6.3-8.2)
[2018-05-16 22:17] VITALS: BP 112/65
--- NOTE | 2018-05-16 22:39 | ERPHSYRPT ---
- History of Present Illness Source: patient Exam Limitations: no limitations Patient Subjective Stated Complaint: patient stated she was feeling dizzy and weak Triage Nursing Assessment: pt alert and oriented x3, skin cool, dry and intact, orqal mucosa dry, patient lung sounds clear, pulses equal bilateral radius, complaining of headache Physician History: Pt is a 73 y/o female with a h/o CAD, CABG, valve replacement and a pacer. She presented to the hospital, secondary to dizziness. Pt states, she felt like the whole room is shifting, and she was afraid to fall. Pt decided to come to the ER. Timing/Duration: today Severity: moderate Modifying Factors: Improves With: movement, rest Associated Symptoms: denies symptoms Allergies/Adverse Reactions: Penicillins Allergy (Verified 01/01/18 03:24) ciprofloxacin Adverse Reaction (Verified 01/01/18 03:24) Home Medications: Albuterol Sulfate [Proair Hfa] 2 puff IH UD PRN 09/12/13 [History] Omeprazole [Prilosec] 40 mg PO DAILY 09/12/13 [History] Potassium Chloride 20 Meq [Klor-Con 20 MEQ] 20 meq PO BID 09/12/13 [History] Warfarin Sodium 3 mg [Coumadin 3 MG] 3 mg PO DAILY 09/19/15 [History] Bumetanide 1 mg [Bumex 1 mg] 1 mg PO DAILY 11/26/16 [History] Carvedilol 3.125 mg [Coreg 3.125 MG] 3.125 mg PO QAM 11/26/16 [History] Levothyroxine Sodium 100 Mcg [Synthroid 100 Mcg] 100 mcg PO DAILY 11/26/16 [History] Losartan Potassium 50 mg [Cozaar 50 MG] 50 mg PO DAILY 11/26/16 [History] Montelukast Sodium [Singulair] 10 mg PO UD PRN 11/26/16 [History] Multivitamin with Minerals [Daily Vitamin Formula-Minerals] 1 tab PO DAILY 11/26 [History] Aspirin 81 gm Chew [Baby Aspirin 81 mg Chew] 81 mg PO DAILY 01/01/18 [ History] Hx Tetanus, Diphtheria Vaccination/Date Given: Yes Hx Influenza Vaccination/Date Given: Yes Hx Pneumococcal Vaccination/Date Given: Yes Immunizations Up to Date: Yes - Review of Systems Constitutional: Malaise Eyes: No Symptoms Ears, Nose, & Throat: No Symptoms Respiratory: No Cough, No Dyspnea Cardiac: No Chest Pain, No Edema, No Syncope Abdominal/Gastrointestinal: No Abdominal Pain, No Nausea, No Vomiting, No Diarrhea Genitourinary Symptoms: No Dysuria Musculoskeletal: No Back Pain, No Neck Pain Skin: No Rash Neurological: Dizziness, Vertigo Psychological: No Symptoms Endocrine: No Symptoms - Past Medical History Pertinent Past Medical History: Yes Neurological History: No Pertinent History ENT History: Cataracts Cardiac History: Arrhythmia, Congestive Heart Failure, Hypertension, Other Respiratory History: COPD, Pneumonia Endocrine Medical History: Hypothyroidism Musculoskeletal History: Arthritis GI Medical History: Diverticulitis, Diverticulosis, Gallbladder Disease History: No Pertinent History Psycho-Social History: Anxiety, Depression Female Reproductive Disorders: No Pertinent History Other Medical History: A-fib - Past Surgical History Past Surgical History: Yes Neuro Surgical History: No Pertinent History Cardiac: CABG, Cardiac Catheterization, Pacemaker, Valve Replacement Respiratory: No Pertinent History Gastrointestinal: Appendectomy, Cholecystectomy, Other Genitourinary: No Pertinent History Musculoskeletal: No Pertinent History Female Surgical History: Hysterectomy Other Surgical History: gastric bypass - Social History Smoking Status: Former smoker Exposure to second hand smoke: No Drug Use: none Patient Lives Alone: Yes - Female History Hx Now: No - Nursing Vital Signs Nursing Vital Signs: Initial Vital Signs Temperature 97.8 F 05/16/18 20:22 Pulse Rate 79 05/16/18 20:22 Blood Pressure 106/66 05/16/18 20:22 O2 Sat by Pulse Oximetry 94 L 05/16/18 20:22 Pain Scale Pain Intensity 0 - Physical Exam General Appearance: no apparent distress, alert Eye Exam: PERRL/EOMI, eyes nml inspection Ears, Nose, Throat Exam: normal ENT inspection, TMs normal, pharynx normal, moist mucous membranes Neck Exam: normal inspection, non-tender, supple, full range of motion Respiratory Exam: normal breath sounds, lungs clear, No respiratory distress Cardiovascular Exam: regular rate/rhythm, normal peripheral pulses, murmur ( loud 3/6 ascultated throughout chest wall) Gastrointestinal/Abdomen Exam: soft, normal bowel sounds, No tenderness, No mass Back Exam: normal inspection, normal range of motion, No CVA tenderness, No vertebral tenderness Extremity Exam: normal inspection, normal range of motion, pelvis stable SpO2: 98 Oxygen Delivery: Room Air - Course Nursing assessment & vital signs reviewed: Yes - CT Exams Head CT Interpretation: Negative Ordered Tests: Active Orders 24 hr Category Date Time Status [facility] Machine Operator STAT Care 05/16/18 20:42 Active EKG-ER Only STAT Care 05/16/18 20:41 Active IV Insertion STAT Care 05/16/18 20:41 Active Orthostatic Vital Signs STAT Care 05/16/18 20:41 Active HEAD WITHOUT CONTRAST [CT] Stat Exams 05/16/18 20:42 Taken CBC W DIFF Stat Lab 05/16/18 21:05 Completed CMP Stat Lab 05/16/18 21:05 Completed MAGNESIUM Stat Lab 05/16/18 21:05 Completed TROPONIN Q3H Lab 05/16/18 21:05 Completed TROPONIN Q3H Lab 05/16/18 23:45 Ordered TROPONIN Q3H Lab 05/17/18 02:45 Ordered TROPONIN Q3H Lab 05/17/18 05:45 Ordered TROPONIN Q3H Lab 05/17/18 08:45 Ordered UA W/RFX UR CULTURE Stat Lab 05/16/18 20:41 Ordered Medication Summary Generic Name Dose Route Start Last Admin Trade Name Freq PRN Reason Stop Dose Admin Sodium Chloride 1,000 mls @ 100 mls/hr 05/16/18 20:45 05/16/18 20:56 Sodium Chloride 0.9% 1000 Ml IV 06/15/18 20:44 100 mls/hr .Q10H RICH Administration Discontinued Medications Generic Name Dose Route Start Last Admin Trade Name Freq PRN Reason Stop Dose Admin Meclizine HCl 25 mg 05/16/18 20:41 05/16/18 20:58 Antivert 25 Mg PO 05/16/18 20:42 25 mg STAT ONE Administration Meclizine HCl Confirm 05/16/18 20:50 Antivert 25 Mg Administered 05/16/18 20:51 Dose 25 mg .ROUTE .STK-MED ONE Ondansetron HCl 4 mg 05/16/18 20:41 05/16/18 20:58 Zofran 4 Mg/2 Ml Vial IV 05/16/18 20:42 4 mg STAT ONE Administration Ondansetron HCl Confirm 05/16/18 20:49 Zofran 4 Mg/2 Ml Vial Administered 05/16/18 20:50 Dose 4 mg .ROUTE .STK-MED ONE Lab/Rad Data: Laboratory Result Diagrams 05/16/18 21:05 05/16/18 21:05 Laboratory Results 05/16/18 05/16/18 05/16/18 Range/Units 21:05 21:05 21:05 WBC 7.5 (4.0-10.5) K/mm3 RBC 4.04 L (4.1-5.4) M/mm3 Hgb 9.4 L (12.0-16.0) gm/dl Hct 31.0 L (35-47) % MCV 76.7 L (78-100) fl MCH 23.2 L (26-32) pg MCHC 30.3 L (32-36) g/dl RDW 17.7 H (11.5-14.0) % Plt Count 238 (150-450) K/mm3 MPV 10.5 H (6-9.5) fl Gran % 62.8 (36.0-66.0) % Eos # (Auto) 0.26 (0-0.5) Absolute Lymphs (auto) 1.62 (1.0-4.6) Absolute Monos (auto) 0.89 (0.0-1.3) Lymphocytes % 21.5 L (24.0-44.0) % Monocytes % 11.8 (0.0-12.0) % Eosinophils % 3.4 (0.00-5.0) % Basophils % 0.5 (0.0-0.4) % Absolute Granulocytes 4.73 (1.4-6.9) Basophils # 0.04 (0-0.4) Sodium 141 (137-145) mmol/L Potassium 4.4 (3.5-5.1) mmol/L Chloride 108 H (98-107) mmol/L Carbon Dioxide 24 (22-30) mmol/L Anion Gap 13.6 (5-15) MEQ/L BUN 20 H (7-17) mg/dL Creatinine 0.92 (0.52-1.04) mg/dL Estimated GFR > 60.0 ML/MIN Glucose 104 (74-106) mg/dL Calcium 9.3 (8.4-10.2) mg/dL Magnesium 1.9 (1.6-2.3) mg/dL Total Bilirubin 0.80 (0.2-1.3) mg/dL AST 25 (14-36) U/L ALT 20 (0-35) U/L Alkaline Phosphatase 130 H (38-126) U/L Troponin I < 0.012 (0.000-0.034) ng/mL Serum Total Protein 7.1 (6.3-8.2) g/dL Albumin 4.0 (3.5-5.0) g/dL - Progress Progress: improved Progress Note: 05/16/18 22:40 Pt was given Meclizine and IV fluid. Pt labs including Troponins were negative , and she is feeling well and is ready for D/C. Will see patient in: office - Departure Time of Disposition: 22:50 Departure Disposition: Home Clinical Impression: Vertigo Condition: Stable Critical Care Time: No Referrals: TRENT NARAYAN MD [Primary Care Provider] - Additional Instructions: Follow up with PCP as scheduled. Prescriptions: Meclizine HCl 25 mg [Antivert 25 mg] 1 tab PO Q6HPRN PRN 5 Days #20 tablet PRN Reason: Dizziness
[2018-05-16 22:56] VITALS: PULSE 70; O2SAT 97
--- NOTE | 2018-05-17 08:47 | XRAY ---
Indication: Dizziness. Multiple contiguous axial images obtained through the head without contrast. Comparison: January 01, 2018. Stable age-appropriate global atrophy and remote left caudate head lacunar infarct. Again no acute intracranial hemorrhage, abnormal extra-axial fluid collection, or mass effect. Fourth ventricle is midline without hydrocephalus. Bony calvarium intact. Visualized paranasal sinuses and mastoid air cells are clear. Impression: Stable nonacute senile brain including remote left caudate lacunar infarct. Comment: Preliminary interpretation was made by [facility]. No critical discrepancy. CT DI 68.81
== END 2018-05-16 22:58 | disposition home or self-care (01) ==
LOC: ED 20:21
DX: R42 Dizziness and giddiness (principal); Z79.899 Other long term (current) drug therapy; Z79.01 Long term (current) use of anticoagulants; I10 Essential (primary) hypertension; Z95.0 Presence of cardiac pacemaker; Z95.1 Presence of aortocoronary bypass graft
CPT/HCPCS: 36000; 36415; 70450; 80053; 83735; 84484; 85025; 93005; 93041; 96360; 96361; 96374; 99284; J2405; A9270-GY